=== PATIENT | female | born 1985 | race Caucasian/White ===

== ENCOUNTER 2020-10-17 08:58 | Outpatient (REF) | payer OTHER, SELFPAY ==
[2020-10-17 10:14] LABS: MANUAL DIFF FLAG NO
[2020-10-17 10:25] LABS: Basophils Percent Auto 0.4 % (0-2); Eosinophils Absolute Auto 0.1 X10*3/uL (0.0-0.4); Eosinophils Percent Auto 1.1 % (0-4); Hematocrit 35.3 % (37-47); Hemoglobin 11.8 g/dl (12.0-16.0); Imm Gran Abs Auto 0.01 X10*3/uL (0.00-0.03); Imm Gran Pct Auto 0.2 % (0.0-0.4); Lymphocytes Absolute Auto 1.6 X10*3/uL (1.2-4.9); Lymphocytes Percent Auto 30.1 % (20-40); Mean Corpuscular HGB Conc 33.4 g/dl (31.0-35.0); Mean Corpuscular Hemoglobin 31.6 pg (27.0-33.0); Mean Corpuscular Volume 94.4 fL (80-98); Monocytes Absolute Auto 0.5 X10*3/uL (0.1-1.2); Monocytes Percent Auto 10.3 % (2-11); Neutrophils Percent Auto 57.9 % (45-73); Platelet Count 173 X10*3/uL (160-400); Red Blood Count 3.74 X10*6/uL (4.20-5.50); White Blood Count 5.3 X10*3/uL (4.8-10.8)
[2020-10-17 10:42] LABS: Alanine Aminotransferase 7 U/L (0-31); Albumin Level 3.9 g/dL (3.5-5.0); Alkaline Phosphatase 36 U/L (39-117); Anion Gap 12 (12-20); Aspartate Amino Transferase 12 U/L (5-31); Bilirubin Total 0.6 mg/dL (0.0-1.0); Blood Urea Nitrogen 12 mg/dL (9-16); Calcium 8.4 mg/dL (8.4-10.2); Carbon Dioxide 23 mmol/L (22-29); Chloride 106 mmol/L (96-108); Cholesterol 162 mg/dL; Estimated Glomerular Filt Rate > 60; Glucose Fasting 92 mg/dL (60-99); HDL Cholesterol 66 mg/dL; LDL Cholesterol Calculated 81 mg/dl; Potassium 4.3 mmol/l (3.3-5.1); Sodium 137 mmol/L (135-145); Triglycerides 75 mg/dL
[2020-10-17 11:04] LABS: HCG Quantitative 1731 mIU/mL; TSH reflex Free T4 1.12 mIU/mL (0.32-4.0)
== END 2020-10-17 08:59 | disposition home or self-care (01) ==
LOC: HO.LAB 08:58
PROVIDERS: PCP Physician Assistant; Visit Provider Physician Assistant
DX: Z13.0 Encounter for screening for diseases of the blood and blood-forming organs and certain disorders involving the immune mechanism (principal); Z13.1 Encounter for screening for diabetes mellitus; Z13.29 Encounter for screening for other suspected endocrine disorder; N91.2 Amenorrhea, unspecified
CPT/HCPCS: 36415; 80053; 80061; 84443; 84702; 85025

== ENCOUNTER 2020-10-29 13:08 | Outpatient (REF) | payer OTHER, SELFPAY ==
[2020-10-29 14:22] LABS: Glucose Urine UA NEG (NEG); Leukocyte Esterase Urine NEG (NEG); Nitrite Urine NEG (NEG); PH 6.5 (5.0-8.0); Specific Gravity - Urine 1.025 (1.005-1.025); Urine Blood NEG (NEG); Urine Ketones 5 MG/DL (NEG); Urine Protein NEG (NEG-TRACE)
[2020-10-29 14:25] LABS: Appearance Urine HAZY; Color Urine YELLOW
== END 2020-10-29 13:09 | disposition home or self-care (01) ==
LOC: HO.LAB 13:08
PROVIDERS: PCP Physician Assistant; Visit Provider Obstetrics & Gynecology
DX: O26.891 Other specified pregnancy related conditions, first trimester (principal); R10.2 Pelvic and perineal pain
CPT/HCPCS: 81003; 84702; 87086

== ENCOUNTER 2023-07-29 14:20 | Outpatient (AMB) | payer OTHER, SELFPAY ==
--- NOTE | 2023-07-29 14:24 | A.OFFPC_ITS ---
Vital Signs 07/29/23 14:25 Height 5 ft 2 in Weight 177 lb BMI 32.4 BP 110/78 Blood Pressure Location Lt brachial Position Sitting Pulse 76 Pulse Source Pulse Oximeter Temp Source Skin Pulse Oximetry (%) 100 Oxygen Delivery Method Room Air Intake Visit Reasons: Annual PE Intake Note: Patient is here today for a physical. 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 Allergies No Known Allergies Allergy (Verified 07/29/23 14:40) Medication List - Last Reconciled 07/29/23 by FOSTER Sanders dextroamphetamine-amphetamine 10 mg ER 10 mg PO DAILY 30 days escitalopram oxalate 5 mg PO DAILY hydroxyzine HCl 25 mg PO BEDTIME PRN Tobacco use date assessed: 07/29/23 Dental Screening Dental Screen Date: 07/29/23 Did you have a dental visit in the last 12 months?: No Did you have a dental problem in the last 6 months where you did not have access to dental care?: No Was dental information given to patient?: Patient has dentist HPI Annual PE HPI Details Patient is a 38-year-old female who presents today for physical exam. Patient of SHIRLENE Lugo. medical history significant for ADHD-stable with Adder all, anxiety, obesity. Mother with history of breast cancer, will order mammogram. Tdap in 2019. Pap smear normal [address] Peralta. Eye and dental exams up-to-date. Patient denies shortness of breath or chest pain. [facility] Surgical History No pertinent past surgical history Family History Father No problems noted. Mother Breast cancer, Onset Age: 49 Maternal Aunt Breast cancer Son Alive and well Social History Housing: House Alcohol intake: current Alcohol intake frequency: holidays/special occasions only Patient Tobacco Use Status: Never used Tobacco e-Cigarette/Vaping Use: Never Used Second Hand Smoke Exposure: No Current occupational status: employed Cognitive needs: No Hearing needs: No Vision needs: No Questionnaire PHQ-9 Over the last 2 weeks, how often have you been bothered by any of the following problems? 1. Little interest or pleasure in doing things: not at all 2. Feeling down, depressed, or hopeless: not at all 3. Trouble falling or staying asleep, or sleeping too much: not at all 4. Feeling tired or having little energy: not at all 5. Poor appetite or overeating: not at all 6. Feeling bad about yourself - or that you are a failure or have let yourself or your family down: not at all 7. Trouble concentrating on things, such as reading the newspaper or watching television: not at all 8. Moving or speaking so slowly that other people could have noticed. Or the opposite - being so fidgety or restless that you have been moving around a lot more than usual: not at all 9. Thoughts that you would be better off or of hurting yourself in some wa y: not at all Total score: 0 Depression Screening Interpretation: Negative 95665 - PHQ-9 Billing: Yes Source: Developed by Drs. Tj Bustillos, Alka Ybarra, Chandan Lorenz and colleagues, with an educational ann-marie from [employer]. Thrive Questionnaire Date Thrive assessed: 07/29/23 I am a: Patient What is your living situation today?: I have a steady place to live Within the past 12 months, did the food you bought not last and you didn't have the money to get more?: Never true Within the past 12 months, did you worry whether your food would run out before you got money to buy more?: Never true Currently or been in a relationship where the following occur: no concerns reported AUDIT C Alcohol Use Questionnaire (AUDIT-C) 1. How often do you have a drink containing alcohol?: Monthly or less 2. How many drinks containing alcohol do you have on a typical day when you are drinking?: 1 or 2 3. How often do you have six or more drinks on one occasion?: Never Total Score: 1 Score Reviewed/Action Taken: No CHIARA-7 AMB Questionnaire CHIARA-7 Date CHIARA - 7 assessed: 07/29/23 (pt on RX for anxiety ) Feeling nervous, anxious, or on edge: 0 = Not at all Not being able to stop or control worryin = Not at all Worrying too much about different things: 0 = Not at all Trouble relaxin = Not at all Being so restless that it is hard to sit still: 0 = Not at all Becoming easily annoyed or irritable: 0 = Not at all Feeling afraid as if something awful might happen: 0 = Not at all Total CHIARA-7 score (0-4 normal; 5-9 mild; 10-14 moderate; 15-21 severe): 0 Source: Developed by Drs. Tj Bustillos, Alka Ybarra, Chandan Lorenz and colleagues, with an educational ann-marie from [employer]. CHIARA-7 Assessment Billing CHIARA-7 Assessment Tool: CHIARA-7 Assessment 10203 Review of Systems Const Denies body aches, Denies chills, Denies fever(s) and Denies headache(s) Eyes Denies change in vision ENT Denies dizziness, Denies otalgia, Denies headache(s), Denies nasal discharge, Denies sinus pain and Denies sore throat Card Denies chest pain, Denies edema, Denies lightheadedness and Denies dyspnea Resp Denies dyspnea and Denies wheezing GI Denies abdominal pain Denies dysuria Musc Denies myalgias Skin/Breast Denies rash Neuro Denies dizziness and Denies headache(s) Aller/Immun Denies wheezing Physical exam (Primary Care) Vital Signs: Last Vital Signs Pulse 76 07/29/23 14:25 BP 110/78 07/29/23 14:25 Pulse Ox 100 07/29/23 14:25 Oxygen Delivery Method Room Air 07/29/23 14:25 BMI result Body Mass Index 32.4 Tobacco/Smoking Status: Tobacco use Status Tobacco use date assessed 07/29/23 07/29/23 14:26 Patient Tobacco Use Status Never used Tobacco 07/29/23 14:26 e-Cigarette/Vaping Use Never Used 07/29/23 14:26 PHQ-9: PHQ-9 Score PHQ-9: Total score 0 07/29/23 14:42 Depression Screening Interpretation: Negative Thrive Assessment: Date of Thrive Assessment Date Thrive assessed 07/29/23 07/29/23 14:26 Currently or been in a relationship where the following occur: no concerns reported Const General: cooperative and no acute distress Orientation/consciousness: patient oriented x3 HENMT Head: Yes normocephalic and Yes atraumatic Ears: TM's normal bilaterally Face and sinus: Yes sinuses nontender Mouth: oropharynx normal and moist mucous membranes Throat: Yes posterior oropharynx normal Eyes General: appearance normal, both eyes and all related structures Pupils: Equal, round and reactive pupils present EOM: EOMs intact bilaterally Neck Neck: Yes normal visual inspection, Yes full ROM and Yes no lymphadenopathy Thyroid: Thyroid normal Resp Effort & Inspection: normal respiratory effort and able to speak in complete sentences Auscultation: clear to auscultation bilaterally, no crackles, no rales, no rhonchi and no wheezes Cardio Rate: regular rate Rhythm: regular rhythm Heart sounds: S1 normal heart sound present, S2 normal heart sound present and no murmurs GI Palpation (GI): Soft to palpation, not firm, nontender, no guarding, not rigid and no hepatosplenomegaly Auscultation: normal bowel sounds General: No CVA tenderness Back/Spine/Pelvis Back: No CVA tenderness Skin General skin exam: no rashes or lesions noted Neuro General: patient oriented x3 Cranial nerves: Yes Equal, round and reactive pupils present Gait exam (Neuro): Normal gait present Extrem General: Yes full ROM and No edema Assessment and Plan Assessment & Plan (1) CHIARA (generalized anxiety disorder): Code(s): F41.1 - Generalized anxiety disorder Plan: Continue escitalopram 5 mg daily Continue hydroxyzine 25 mg at bedtime p.r.n. (2) ADHD: Code(s): F90.9 - Attention-deficit hyperactivity disorder, unspecified type Qualifiers: Attention deficit-hyperactivity disorder type: predominantly inattentive Qualified Code(s): F90.0 - Attention-deficit hyperactivity disorder, predominantly inattentive type Plan: Patient is to continue Adderall 10 mg daily as prescribed (3) Family history of breast cancer: Code(s): Z80.3 - Family history of malignant neoplasm of breast Plan: Order for mammogram (4) Obese: Code(s): E66.9 - Obesity, unspecified Qualifiers: Obesity type: due to excess calories Obesity classification: adult class 1 (BMI 30 - 34.9) Serious obesity comorbidity presence: without serious comorbidity Body mass index: BMI 30.0-30.9 Qualified Code(s): E66.09 - Other obesity due to excess calories; Z68.30 - Body mass index [BMI] 30.0-30.9, adult Plan: Healthy food choices and exercise as tolerated (5) Annual physical exam: Code(s): Z00.00 - Encounter for general adult medical examination without abnormal findings (6) Screening for diabetes mellitus (DM): Code(s): Z13.1 - Encounter for screening for diabetes mellitus Orders: Orders MM tomosynthesis screening BI 07/29/23 Z80.3 - Family history of malignant neoplasm of breast Vitamin D 25-OH Total 07/29/23 Z00.00 - Encounter for general adult medical examination without abnormal findings Vitamin B12 and Folate 07/29/23 Z00. - Encounter for general adult medical examination without abnormal findings TSH reflex Free T4 07/29/23 Z00.00 - Encounter for general adult medical examination without abnormal findings Lipid Panel 07/29/23 Z00. - Encounter for general adult medical examination without abnormal findings Comprehensive [place]. Panel Fast 07/29/23 Z13. - Encounter for screening for diabetes mellitus Complete Blood Count Auto Diff 07/29/23 Z00.00 - Encounter for general adult medical examination without abnormal findings Medications: Refilled dextroamphetamine-amphetamine 10 mg ER 10 mg PO DAILY 30 caps 0RF 30 days F90.0 - Attention-deficit hyperactivity disorder, predominantly inattentive type Coding Level of Care Code Est Pt Prev Care 18-39y([id number]) Diagnoses CHIARA (generalized anxiety disorder) F41.1 Attention deficit hyperactivity disorder (ADHD), predominantly inattentive type F90.0 Attention deficit-hyperactivity disorder type: predominantly inattentive Family history of breast cancer Z80.3 Class 1 obesity due to excess calories without serious comorbidity with body mass index (BMI) of 30.0 to 30.9 in adult E66.09; Z68.30 Obesity type: due to excess calories Obesity classification: adult class 1 (BMI 30 - 34.9) Serious obesity comorbidity presence: without serious comorbidity Body mass index: BMI 30.0-30.9 Annual physical exam Z00.00 Screening for diabetes mellitus (DM) Z13.1 Additional Codes CHIARA-7 Assessment Billing - CHIARA-7 Assessment Tool: CHIARA-7 Assessment 48621 ([id number])
[2023-07-29 14:25] VITALS: BP 110/78; PULSE 76; O2SAT 100; BMI 32.4
== END 2023-07-29 14:55 | disposition home or self-care (01) ==
PROVIDERS: PCP Physician Assistant; Visit Provider Nurse Practitioner Family
DX: Z00.00 Encounter for general adult medical examination without abnormal findings (principal); F90.0 Attention-deficit hyperactivity disorder, predominantly inattentive type; E66.09 Other obesity due to excess calories; Z68.30 Body mass index [BMI] 30.0-30.9, adult
CPT/HCPCS: 99395

== ENCOUNTER 2023-08-22 07:23 | Outpatient (REF) | payer OTHER, SELFPAY ==
--- NOTE | ~2023-08-22 | MM_ITS ---
EXAMINATION: MM SCREENING DIGITAL BREAST TOMOSYNTHESIS, BILATERAL CLINICAL INFORMATION: Screening. Asymptomatic. COMPARISON: Mammography: This is a baseline study. TECHNIQUE: Digital breast tomosynthesis is performed in both the craniocaudal and mediolateral oblique views along with computer-aided detection (CAD). Synthesized 2D images are generated from the tomosynthesis. FINDINGS: The breasts are heterogeneously dense, which may obscure small masses (ACR BI-RADS breast composition Category c). There is focal asymmetry of the upper outer quadrant of the left breast which may be normal for this patient. The prior mammograms, further mammographic imaging is advised. Sonography may be performed at the discretion of the diagnostic radiologist. There are no significant masses or abnormal calcifications. MM/MM tomosynthesis screening BI IMPRESSION: Focal asymmetry of the upper outer quadrant of the left breast on a baseline mammogram warrants additional mammographic imaging. ASSESSMENT: BI-RADS BI-RADS 0 - Incomplete: Needs additional Imaging. RECOMMENDATION: 1. Additional views of the left breast 2. Targeted ultrasound if warranted after review of the additional views. 3. Radiology department staff will contact the patient for additional imaging. Additional Imaging required This examination should not preclude the clinical evaluation of a suspicious palpable abnormality. This patient's information was entered into a reminder system with a target due date for their next mammogram.
== END 2023-08-22 07:24 | disposition home or self-care (01) ==
LOC: HO.MAMMO 07:23
PROVIDERS: PCP Physician Assistant; Visit Provider Nurse Practitioner Family
DX: Z12.31 Encounter for screening mammogram for malignant neoplasm of breast (principal)
CPT/HCPCS: 77063; 77067

== ENCOUNTER → 2023-08-22 07:30 | Outpatient (BNV) | payer OTHER, SELFPAY | PROVIDERS: PCP Physician Assistant; Visit Provider Radiology Diagnostic Radiology | DX: Z12.31 Encounter for screening mammogram for malignant neoplasm of breast (principal) | CPT/HCPCS: 77063; 77067 ==

== ENCOUNTER 2023-09-14 13:24 | Outpatient (REF) | payer OTHER, SELFPAY ==
--- NOTE | ~2023-09-14 | US_ITS ---
EXAMINATION: MM DIAGNOSTIC DIGITAL BREAST TOMOSYNTHESIS, LEFT US BREAST LIMITED, LEFT MAMMOGRAPHY: CLINICAL INFORMATION: Evaluate focal asymmetric tissue left breast upper outer quadrant seen on baseline screening exam. COMPARISON: Mammography: Baseline screening exam 08/22/2023. TECHNIQUE: Digital breast tomosynthesis is performed in full field 3-D left mediolateral view, as well as 3-D spot compression left MLO and CC views. FINDINGS: There are scattered areas of fibroglandular density (ACR BI-RADS breast composition Category b). Diagnostic views demonstrate no evidence of mass or focal architectural distortion within the upper outer quadrant of the left breast. No suspicious microcalcifications are present. There are no findings suspicious for malignancy. ULTRASOUND: CLINICAL INFORMATION: As above. COMPARISON: No relevant prior. TECHNIQUE: Targeted sonographic evaluation was performed using a high frequency linear transducer. Attention to the upper outer quadrant was given. Selected archived documentation. FINDINGS: LEFT BREAST: There is a mixture of fatty and fibroglandular tissue. No suspicious mass is seen. There is no pathologic acoustic shadowing. There is no cystic abnormality. US/US breast LT limited mamm only IMPRESSION: There are no findings suspicious for malignancy. Asymmetric tissue in the upper outer quadrant appears normal for this patient. Recommend returning to routine screening. OVERALL ASSESSMENT: Mammography: BI-RADS 1 - Negative Ultrasound: BI-RADS 1 - Negative RECOMMENDATION: 1 year F/U Results were provided to the patient at time of visit by the technologist. This patient's information was entered into a reminder system with a target due date for their next mammogram.
== END 2023-09-14 13:25 | disposition home or self-care (01) ==
LOC: HO.MAMMO 13:24
PROVIDERS: PCP Physician Assistant; Visit Provider Nurse Practitioner Family
DX: N64.89 Other specified disorders of breast (principal)
CPT/HCPCS: 76642; 77061; 77065

== ENCOUNTER → 2023-09-14 13:30 | Outpatient (BNV) | payer OTHER, SELFPAY | PROVIDERS: PCP Physician Assistant; Visit Provider Radiology Diagnostic Radiology | DX: R92.312 Mammographic fatty tissue density, left breast (principal); R92.322 Mammographic fibroglandular density, left breast | CPT/HCPCS: 76642; 77061; 77065 ==

== ENCOUNTER 2024-01-02 15:36 | Outpatient (AMB) | payer OTHER, SELFPAY ==
--- NOTE | 2024-01-02 15:38 | MHC.PC.OV ---
Vital Signs 01/02/24 15:39 Height 5 ft 2 in Weight 176 lb 8 oz BMI 32.3 BP 104/76 Blood Pressure Location Lt brachial Position Sitting Pulse 85 Pulse Source Pulse Oximeter Pulse Oximetry (%) 99 Oxygen Delivery Method Room Air Intake Visit Reasons: ADHD Public Service Director Required: No Accompanied by: Self / Same As Patient Allergies No Known Allergies Allergy (Verified 01/02/24 15:52) Medication List - Last Reconciled 01/02/24 by Jerry Lugo PA-C dextroamphetamine-amphetamine 10 mg ER 10 mg PO DAILY 30 days escitalopram oxalate 5 mg PO DAILY hydroxyzine HCl 25 mg PO BEDTIME PRN Tobacco use date assessed: 01/02/24 Dental Screening Dental Screen Date: 01/02/24 Did you have a dental visit in the last 12 months?: Yes Did you have a dental problem in the last 6 months where you did not have access to dental care?: No Was dental information given to patient?: Patient has dentist HPI ADHD HPI Details Patient is a 38-year-old female here today for follow-up visit ?Patient has a past medical history significant for ADHD , generalized anxiety disorder. .. ADHD:? Patient continues on low-dose Adderall with good effect on her her attention of focus on job tasks.? Continues to work part-time and now at a new job which she is doing well with. .. Generalized anxiety disorder:? Recently restarted SSRI therapy and doing well with her anxiety.' :Obesity: Latasha reports she has been having a very hard time losing weight. She reports she is fairly active and has fairly good eating habits. She does admit she can be a little bit more physically active. She is interested in trying GLP 1 to try to lose weight. [facility] Surgical History No pertinent past surgical history Family History Father No problems noted. Mother Breast cancer, Onset Age: 49 Maternal Aunt Breast cancer Son Alive and well Social History Housing: House Alcohol intake: current Alcohol intake frequency: holidays/special occasions only Patient Tobacco Use Status: Never used Tobacco e-Cigarette/Vaping Use: Never Used Second Hand Smoke Exposure: No Current occupational status: employed Cognitive needs: No Hearing needs: No Vision needs: No Questionnaire PHQ-9 Over the last 2 weeks, how often have you been bothered by any of the following problems? 1. Little interest or pleasure in doing things: not at all 2. Feeling down, depressed, or hopeless: not at all 3. Trouble falling or staying asleep, or sleeping too much: not at all 4. Feeling tired or having little energy: not at all 5. Poor appetite or overeating: not at all 6. Feeling bad about yourself - or that you are a failure or have let yourself or your family down: not at all 7. Trouble concentrating on things, such as reading the newspaper or watching television: not at all 8. Moving or speaking so slowly that other people could have noticed. Or the opposite - being so fidgety or restless that you have been moving around a lot more than usual: not at all 9. Thoughts that you would be better off or of hurting yourself in some way: not at all Total score: 0 Depression Screening Interpretation: Negative Depression Screening Done: Yes 95608 - PHQ-9 Billing: Yes Source: Developed by Drs. Tj Bustillos, Alka Ybarra, Chandan Lorenz and colleagues, with an educational ann-marie from [employer]. Thrive Questionnaire Date Thrive assessed: 01/02/24 I am a: Patient What is your living situation today?: I have a steady place to live Within the past 12 months, did the food you bought not last and you didn't have the money to get more?: Never true Within the past 12 months, did you worry whether your food would run out before you got money to buy more?: Never true Do you have trouble paying for medicines?: No Do you have trouble getting transportation to medical appointments?: No Do you have trouble paying your heating and electricity bill?: No Do you have trouble taking care of your child, family member or friend?: No Do you have trouble with day-to-day activities such as bathing, preparing meals, shopping, managing finances, etc.?: No Are you currently unemployed and looking for a job?: No Are you interested in more education?: No Please select the resources that you would like help with: None Currently or been in a relationship where the following occur: no concerns reported THRIVE Score: 0 AUDIT C Alcohol Use Questionnaire (AUDIT-C) 1. How often do you have a drink containing alcohol?: Monthly or less 2. How many drinks containing alcohol do you have on a typical day when you are drinking?: 1 or 2 3. How often do you have six or more drinks on one occasion?: Never Total Score: 1 Score Reviewed/Action Taken: No CHIARA-7 AMB Questionnaire CHIARA-7 Date CHIARA - 7 assessed: 01/02/24 (pt on RX for anxiety ) Feeling nervous, anxious, or on edge: 0 = Not at all Not being able to stop or control worryin = Not at all Worrying too much about different things: 0 = Not at all Trouble relaxin = Not at all Being so restless that it is hard to sit still: 0 = Not at all Becoming easily annoyed or irritable: 0 = Not at all Feeling afraid as if something awful might happen: 0 = Not at all Total CHIARA-7 score (0-4 normal; 5-9 mild; 10-14 moderate; 15-21 severe): 0 Source: Developed by Drs. Tj Bustillos, Alka Ybarra, Chandan Lorenz and colleagues, with an educational ann-marie from [employer]. CHIARA-7 Assessment Billing CHIARA-7 Assessment Tool: CHIARA-7 Assessment 20285 Review of Systems Const Denies headache(s) Eyes Denies loss of vision ENT Denies vertigo, Denies dizziness, Denies headache(s) and Denies sore throat Card Denies chest pain, Denies leg edema and Denies lightheadedness Resp Denies cough, Denies hemoptysis and Denies wheezing GI Denies abdominal pain, Denies melena, Denies constipation, Denies diarrhea and Denies vomiting Denies urinary frequency, Denies dysuria and Denies urinary urgency Musc Denies arthralgias, Denies joint swelling, Denies numbness and Denies tingling Neuro Denies Abnormal speech present, Denies behavioral changes, Denies vertigo, Denies dizziness, Denies headache(s), Denies loss of vision, Denies memory loss, Denies numbness and Denies tingling Psych Denies anxiety, Denies behavioral changes, Denies depression, Denies memory loss and Denies panic attacks Juan Manuel/Lymph Denies easy bleeding and Denies easy bruising Aller/Immun Denies wheezing Physical exam (Primary Care) Vital Signs: Last Vital Signs Pulse 85 01/02/24 15:39 BP 104/76 01/02/24 15:39 Pulse Ox 99 01/02/24 15:39 Oxygen Delivery Method Room Air 01/02/24 15:39 BMI result Body Mass Index 32.3 BMI Assessment/Plan discussion: High Tobacco/Smoking Status: Tobacco use Status Tobacco use date assessed 01/02/24 01/02/24 15:40 Patient Tobacco Use Status Never used Tobacco 01/02/24 15:38 e-Cigarette/Vaping Use Never Used 01/02/24 15:38 PHQ-9: PHQ-9 Score PHQ-9: Total score 0 01/02/24 15:54 Depression Screening Interpretation: Negative Thrive Assessment: Date of Thrive Assessment Date Thrive assessed 01/02/24 01/02/24 15:49 Currently or been in a relationship where the following occur: no concerns reported Const Other: Obese General: healthy appearing, no acute distress, alert and awake Nutritional Appearance: well nourished Orientation/consciousness: oriented to person, oriented to place and oriented to time HENMT Ears: TM's normal bilaterally General nose exam: Normal nasal mucous membranes and turbinates present Eyes Conjunctivae: conjunctivae normal Sclerae: sclerae normal Pupils: Equal, round and reactive pupils present Neck Neck: Yes no lymphadenopathy and Yes no JVD Thyroid: Thyroid normal Carotids: no bruits Resp Effort & Inspection: normal respiratory effort and not tachypneic Auscultation: no crackles, no rales, no rhonchi and no wheezes Cardio Rate: regular rate Rhythm: regular rhythm Heart sounds: no murmurs and normal S1 and S2 GI Palpation (GI): Soft to palpation, nontender, no hepatomegaly and no splenomegaly Auscultation: normal bowel sounds Skin General skin exam: no rashes or lesions noted and dry skin Neuro General: oriented to person, oriented to place and oriented to time Cranial nerves: Yes Equal, round and reactive pupils present Speech: No Abnormal speech present Gait exam (Neuro): Normal gait present Motor exam (neuro): no tremor noted Extrem Right upper extremity: full ROM Left upper extremity: full ROM Right lower extremity: full ROM; no edema Left lower extremity: full ROM; no edema Psych Mental Status: mental status grossly normal Speech and movement: Normal speech and movement present Affect: normal affect Attitude: cooperative Thought process: Normal thought process present Assessment and Plan Assessment & Plan (1) CHIARA (generalized anxiety disorder): Code(s): F41.1 - Generalized anxiety disorder Plan: Continue escitalopram 5 mg daily, She reports her anxiety is fairly well controlled with current dose of SSRI therapy. (2) ADHD: Code(s): F90.9 - Attention-deficit hyperactivity disorder, unspecified type Qualifiers: Attention deficit-hyperactivity disorder type: predominantly inattentive Qualified Code(s): F90.0 - Attention-deficit hyperactivity disorder, predominantly inattentive type Plan: Patient is to continue Adderall 10 mg daily as prescribed. She denies any side effects from the stimulant medication. (3) Screening for diabetes mellitus (DM): Code(s): Z13.1 - Encounter for screening for diabetes mellitus (4) Obese: Code(s): E66.9 - Obesity, unspecified Qualifiers: Body mass index: BMI 32.0-32.9 Obesity classification: adult class 1 (BMI 30 - 34.9) Obesity type: due to excess calories Serious obesity comorbidity presence: without serious comorbidity Qualified Code(s): E66.09 - Other obesity due to excess calories; Z68.32 - Body mass index [BMI] 32.0-32.9, adult Plan: She does understand her BMI is over 30 and will try to work on better eating habits and being more physically active to lose weight. She is wanting to start GLP 1 for weight loss. Will send in started dose and see if insurance does cover. Orders: Orders IRON PROFILE 01/02/24 D50.9 - Iron deficiency anemia, unspecified, Z13.0 - Encounter for screening for diseases of the blood and blood-forming organs and certain disorders involving the immune mechanism Comprehensive [place]. Panel Fast 01/02/24 Z13.1 - Encounter for screening for diabetes mellitus Complete Blood Count no Diff 01/02/24 Z13.0 - Encounter for screening for diseases of the blood and blood-forming organs and certain disorders involving the immune mechanism TSH reflex Free T4 Today N91.2 - Amenorrhea, unspecified Medications: New semaglutide (weight loss) (Gregorio) administer weeks 1 through 4 of therapy 0.25 mg (0.5 mL) subcut QWEEK 2 mL 0RF 4 weeks E66.09 - Other obesity due to excess calories, Z68.32 - Body mass index [BMI] 32.0-32.9, adult Refilled dextroamphetamine-amphetamine 10 mg ER 10 mg PO DAILY 30 caps 0RF 30 days F90.0 - Attention-deficit hyperactivity disorder, predominantly inattentive type escitalopram oxalate 5 mg PO DAILY 90 tabs 1RF F41.1 - Generalized anxiety disorder Discontinued hydroxyzine HCl Discontinued Reason: Doctor's Order 25 mg PO BEDTIME PRN 10 tabs 0RF anxiety F41.1 - Generalized anxiety disorder Coding Level of Care Code Est Pt Level 4 (19310) Diagnoses CHIARA (generalized anxiety disorder) F41.1 Attention deficit hyperactivity disorder (ADHD), predominantly inattentive type F90.0 Attention deficit-hyperactivity disorder type: predominantly inattentive Screening for diabetes mellitus (DM) Z13.1 Class 1 obesity due to excess calories without serious comorbidity with body mass index (BMI) of 32.0 to 32.9 in adult E66.09; Z68.32 Body mass index: BMI 32.0-32.9 Obesity classification: adult class 1 (BMI 30 - 34.9) Obesity type: due to excess calories Serious obesity comorbidity presence: without serious comorbidity Additional Codes CHIARA-7 Assessment Billing - CHIARA-7 Assessment Tool: CHIARA-7 Assessment 60756 ([id number])
[2024-01-02 15:39] VITALS: BP 104/76; PULSE 85; O2SAT 99; BMI 32.3
== END 2024-01-02 16:16 | disposition home or self-care (01) ==
PROVIDERS: PCP Physician Assistant; Visit Provider Physician Assistant
DX: F41.1 Generalized anxiety disorder (principal); E66.09 Other obesity due to excess calories; Z68.32 Body mass index [BMI] 32.0-32.9, adult; F90.0 Attention-deficit hyperactivity disorder, predominantly inattentive type; Z13.1 Encounter for screening for diabetes mellitus
CPT/HCPCS: 99214

== ENCOUNTER 2024-04-02 08:42 | Outpatient (AMB) | payer OTHER, SELFPAY ==
--- NOTE | 2024-04-02 08:55 | MHC.PC.OV ---
Vital Signs 04/02/24 08:56 Height 5 ft 2 in Weight 154 lb 2 oz BMI 28.2 BP 132/68 Blood Pressure Location Rt brachial Position Sitting Pulse 78 Pulse Source Pulse Oximeter Pulse Oximetry (%) 98 Oxygen Delivery Method Room Air Intake Visit Reasons: f/u ADHD Intake Note: Patient is here to follow up on ADHD. Front Line Supervisor Required: No Optical Brightener Maker Helper: Not Required per policy Accompanied by: Self / Same As Patient Allergies No Known Allergies Allergy (Verified 04/02/24 09:19) Medication List - Last Reconciled 04/02/24 by Jerry Lugo PA-C dextroamphetamine-amphetamine 10 mg ER 10 mg PO DAILY 30 days escitalopram oxalate 5 mg PO DAILY semaglutide (weight loss) (Wegovy) 1 mg (0.5 mL) subcut QWEEK 4 weeks Tobacco use date assessed: 04/02/24 Dental Screening Dental Screen Date: 01/02/24 HPI f/u ADHD HPI Details Patient is a 38-year-old female here today for follow-up visit ?Patient has a past medical history significant for ADHD , generalized anxiety disorder. .. ADHD:? Patient continues on low-dose Adderall with good effect on her her attention of focus on job tasks.? Continues to work part-time and now at a new job which she is doing well with. .. Generalized anxiety disorder:? Continues on SSRI therapy and doing well. Her mental anxiety has been better even since losing weight :Obesity: Has started Wegovy and has lost significant amount of weight. Today's BMI at 28.2. She reports she feels great though has minor side effects from the GLP 1 that are tolerable. [facility] Surgical History No pertinent past surgical history Family History Father No problems noted. Mother Breast cancer, Onset Age: 49 Maternal Aunt Breast cancer Son Alive and well Social History Housing: House Alcohol intake: current Alcohol intake frequency: holidays/special occasions only Patient Tobacco Use Status: Never used Tobacco e-Cigarette/Vaping Use: Never Used Second Hand Smoke Exposure: No service: No Current occupational status: employed Cognitive needs: No Hearing needs: No Vision needs: Yes (Glasses) Questionnaire Thrive Questionnaire Date Thrive assessed: 01/02/24 CHIARA-7 AMB Questionnaire CHIARA-7 Date CHIARA - 7 assessed: 01/02/24 (pt on RX for anxiety ) Source: Developed by Drs. Tj Bustillos, Alka Ybarra, Chandan Lorenz and colleagues, with an educational ann-marie from [employer]. Review of Systems Const Denies headache(s) Eyes Denies loss of vision ENT Denies vertigo, Denies dizziness, Denies headache(s) and Denies sore throat Card Denies chest pain, Denies leg edema and Denies lightheadedness Resp Denies cough, Denies hemoptysis and Denies wheezing GI Denies abdominal pain, Denies melena, Denies constipation, Denies diarrhea and Denies vomiting Denies urinary frequency, Denies dysuria and Denies urinary urgency Musc Denies arthralgias, Denies joint swelling, Denies numbness and Denies tingling Neuro Denies Abnormal speech present, Denies behavioral changes, Denies vertigo, Denies dizziness, Denies headache(s), Denies loss of vision, Denies memory loss, Denies numbness and Denies tingling Psych Denies anxiety, Denies behavioral changes, Denies depression, Denies memory loss and Denies panic attacks Juan Manuel/Lymph Denies easy bleeding and Denies easy bruising Aller/Immun Denies wheezing Physical exam (Primary Care) Vital Signs: Last Vital Signs Pulse 78 04/02/24 08:56 BP 132/68 04/02/24 08:56 Pulse Ox 98 04/02/24 08:56 Oxygen Delivery Method Room Air 04/02/24 08:56 BMI result Body Mass Index 28.2 Tobacco/Smoking Status: Tobacco use Status Tobacco use date assessed 04/02/24 04/02/24 08:59 Patient Tobacco Use Status Never used Tobacco 04/02/24 08:59 e-Cigarette/Vaping Use Never Used 04/02/24 08:59 Thrive Assessment: Date of Thrive Assessment Date Thrive assessed 01/02/24 04/02/24 08:59 Const General: healthy appearing, no acute distress, alert and awake Nutritional Appearance: well nourished Orientation/consciousness: oriented to person, oriented to place and oriented to time HENMT Ears: TM's normal bilaterally General nose exam: Normal nasal mucous membranes and turbinates present Eyes Conjunctivae: conjunctivae normal Sclerae: sclerae normal Pupils: Equal, round and reactive pupils present Neck Neck: Yes no lymphadenopathy and Yes no JVD Thyroid: Thyroid normal Carotids: no bruits Resp Effort & Inspection: normal respiratory effort and not tachypneic Auscultation: no crackles, no rales, no rhonchi and no wheezes Cardio Rate: regular rate Rhythm: regular rhythm Heart sounds: no murmurs and normal S1 and S2 GI Palpation (GI): Soft to palpation, nontender, no hepatomegaly and no splenomegaly Auscultation: normal bowel sounds Skin General skin exam: no rashes or lesions noted and dry skin Neuro General: oriented to person, oriented to place and oriented to time Cranial nerves: Yes Equal, round and reactive pupils present Speech: No Abnormal speech present Gait exam (Neuro): Normal gait present Motor exam (neuro): no tremor noted Extrem Right upper extremity: full ROM Left upper extremity: full ROM Right lower extremity: full ROM; no edema Left lower extremity: full ROM; no edema Psych Mental Status: mental status grossly normal Speech and movement: Normal speech and movement present Affect: normal affect Attitude: cooperative Thought process: Normal thought process present Assessment and Plan Assessment & Plan (1) ADHD: Code(s): F90.9 - Attention-deficit hyperactivity disorder, unspecified type Qualifiers: Attention deficit-hyperactivity disorder type: predominantly inattentive Qualified Code(s): F90.0 - Attention-deficit hyperactivity disorder, predominantly inattentive type Plan: Patient is to continue Adderall 10 mg daily as prescribed. She denies any side effects from the stimulant medication. (2) CHIARA (generalized anxiety disorder): Code(s): F41.1 - Generalized anxiety disorder Plan: Continue escitalopram 5 mg daily, She reports her anxiety is fairly well controlled with current dose of SSRI therapy. (3) Obese: Code(s): E66.9 - Obesity, unspecified Qualifiers: Obesity type: due to excess calories Obesity classification: adult class 1 (BMI 30 - 34.9) Serious obesity comorbidity presence: without serious comorbidity Body mass index: BMI 32.0-32.9 Qualified Code(s): E66.09 - Other obesity due to excess calories; Z68.32 - Body mass index [BMI] 32.0-32.9, adult Plan: Now on Wegovy 1 mg daily. Has lost 20 lb since last office visit. She feels great though has minor side effects from the GLP 1 that are tolerable. She reports her goal weight is to be 135 lbs. Patient Instructions: Goals: Continue losing weight Barriers: Adherence to physical activity and healthy eating habits. Coding Level of Care Code Est Pt Level 4 (43508) Diagnoses Attention deficit hyperactivity disorder (ADHD), predominantly inattentive type F90.0 Attention deficit-hyperactivity disorder type: predominantly inattentive CHIARA (generalized anxiety disorder) F41.1 Class 1 obesity due to excess calories without serious comorbidity with body mass index (BMI) of 32.0 to 32.9 in adult E66.09; Z68.32 Obesity type: due to excess calories Obesity classification: adult class 1 (BMI 30 - 34.9) Serious obesity comorbidity presence: without serious comorbidity Body mass index: BMI 32.0-32.9
[2024-04-02 08:56] VITALS: BP 132/68; PULSE 78; O2SAT 98; BMI 28.2
== END 2024-04-02 09:37 | disposition home or self-care (01) ==
PROVIDERS: PCP Physician Assistant; Visit Provider Physician Assistant
DX: F90.0 Attention-deficit hyperactivity disorder, predominantly inattentive type (principal); F41.1 Generalized anxiety disorder; E66.09 Other obesity due to excess calories; Z68.32 Body mass index [BMI] 32.0-32.9, adult
CPT/HCPCS: 99214

== ENCOUNTER 2024-08-01 08:00 | Outpatient (REF) | payer OTHER, SELFPAY ==
[2024-08-01 09:35] LABS: Hematocrit 34.8 % (37.0-47.0); Hemoglobin 11.5 g/dl (12.0-16.0); Mean Corpuscular Hemoglobin 29.1 pg (27.0-33.0); Mean Corpuscular Volume 88.1 fL (80.0-98.0); Mean Platelet Volume 9.8 fL (9.4-12.3); Platelet Count 199 X10*3/uL (160-400); Red Blood Count 3.95 X10*6/uL (4.20-5.50); Red Cell Distribution Width 13.2 % (11.0-16.0); White Blood Count 4.8 X10*3/uL (4.8-10.8)
[2024-08-01 10:19] LABS: Alanine Aminotransferase 6 U/L (0-31); Alkaline Phosphatase 43 U/L (39-117); Anion Gap 10 (12-20); Aspartate Amino Transferase 12 U/L (5-31); Bilirubin Total 0.5 mg/dL (0.0-1.0); Blood Urea Nitrogen 11 mg/dL (9-16); Calcium 8.8 mg/dL (8.4-10.2); Carbon Dioxide 24 mmol/L (22-29); Chloride 107 mmol/L (96-108); Estimated Glomerular Filt Rate > 60; Glucose Fasting 89 mg/dL (60-99); Iron 35 mcg/dL (30-160); Percent Iron Saturation 10 % (15-50); Potassium 3.9 mmol/L (3.3-5.1); Sodium 137 mmol/L (135-145); Total Iron Binding Capacity 342 mcg/dL (228-428); Total Protein 7.5 g/dL (6.5-8.0); Unsaturated Iron Binding 307 ug/dL
[2024-08-01 10:42] LABS: TSH reflex Free T4 1.05 uIU/mL (0.32-4.0)
== END 2024-08-01 08:01 | disposition home or self-care (01) ==
LOC: HO.LAB 08:00
PROVIDERS: PCP Physician Assistant; Visit Provider Physician Assistant
DX: Z00.00 Encounter for general adult medical examination without abnormal findings (principal); F90.0 Attention-deficit hyperactivity disorder, predominantly inattentive type; F41.1 Generalized anxiety disorder; E66.09 Other obesity due to excess calories; Z68.32 Body mass index [BMI] 32.0-32.9, adult; Z79.899 Other long term (current) drug therapy; D50.9 Iron deficiency anemia, unspecified; N91.2 Amenorrhea, unspecified; Z13.0 Encounter for screening for diseases of the blood and blood-forming organs and certain disorders involving the immune mechanism; Z13.1 Encounter for screening for diabetes mellitus
CPT/HCPCS: 36415; 80053; 83540; 84443; 85027; 96127

== ENCOUNTER 2024-08-01 08:00 | Outpatient (AMB) | payer OTHER, SELFPAY ==
[2024-08-01 08:10] VITALS: BP 112/76; PULSE 78; O2SAT 98; BMI 25.2
--- NOTE | 2024-08-01 08:10 | MHC.PC.OV ---
Vital Signs 08/01/24 08:10 Height 5 ft 2 in Weight 138 lb BMI 25.2 BP 112/76 Blood Pressure Location Lt brachial Position Sitting Pulse 78 Pulse Source Pulse Oximeter Pulse Oximetry (%) 98 Oxygen Delivery Method Room Air Intake Visit Reasons: PHYSICAL Intake Note: Patient here for a Physical Exam Bi Architect Required: No Accompanied by: Self / Same As Patient Allergies No Known Allergies Allergy (Verified 08/01/24 08:14) Medication List - Last Reconciled 08/01/24 by Jerry Lugo PA-C dextroamphetamine-amphetamine 10 mg ER 10 mg PO DAILY 30 days escitalopram oxalate 5 mg PO DAILY semaglutide (weight loss) (Wegovy) 1 mg (0.5 mL) subcut QWEEK 4 weeks Tobacco use date assessed: 04/02/24 Dental Screening Dental Screen Date: 08/01/24 Did you have a dental visit in the last 12 months?: Yes Did you have a dental problem in the last 6 months where you did not have access to dental care?: No Was dental information given to patient?: Patient has dentist HPI PHYSICAL HPI Details Patient is a 39-year-old female here today for routine annual physical ?Patient has a past medical history significant for ADHD , generalized anxiety disorder. .. ADHD:? Patient continues on low-dose Adderall with good effect on her her attention of focus on job tasks.? Continues to work part-time and now at a new job which she is doing well with. .. Generalized anxiety disorder:? Continues on SSRI therapy and doing well. Her mental anxiety has been better even since losing weight :Obesity: Has started Wegovy and has lost significant amount of weight. Today's BMI at 25. She reports she feels great though has minor side effects from the GLP 1 that are tolerable. 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 [facility] Surgical History No pertinent past surgical history Family History Father No problems noted. 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 1. Little interest or pleasure in doing things: not at all 2. Feeling down, depressed, or hopeless: not at all 3. Trouble falling or staying asleep, or sleeping too much: not at all 4. Feeling tired or having little energy: not at all 5. Poor appetite or overeating: not at all 6. Feeling bad about yourself - or that you are a failure or have let yourself or your family down: not at all 7. Trouble concentrating on things, such as reading the newspaper or watching television: not at all 8. Moving or speaking so slowly that other people could have noticed. Or the opposite - being so fidgety or restless that you have been moving around a lot more than usual: not at all 9. Thoughts that you would be better off or of hurting yourself in some way: not at all Total score: 0 Depression Screening Interpretation: Negative Depression Screening Done: Yes 71843 - PHQ-9 Billing: Yes Source: Developed by Drs. Tj Bustillos, Alka Ybarra, Chandan Lorenz and colleagues, with an educational ann-marie from [employer]. Thrive Questionnaire Date Thrive assessed: 08/01/24 I am a: Patient What is your living situation today?: I have a steady place to live Within the past 12 months, did the food you bought not last and you didn't have the money to get more?: Never true Within the past 12 months, did you worry whether your food would run out before you got money to buy more?: Never true Do you have trouble paying for medicines?: No Do you have trouble getting transportation to medical appointments?: No Do you have trouble paying your heating and electricity bill?: No Do you have trouble taking care of your child, family member or friend?: No Do you have trouble with day-to-day activities such as bathing, preparing meals, shopping, managing finances, etc.?: No Are you currently unemployed and looking for a job?: No Are you interested in more education?: No Please select the resources that you would like help with: None Currently or been in a relationship where the following occur: No concerns reported THRIVE Score: 0 AUDIT C Alcohol Use Questionnaire (AUDIT-C) 1. How often do you have a drink containing alcohol?: Monthly or less 2. How many drinks containing alcohol do you have on a typical day when you are drinking?: 3 or 4 3. How often do you have six or more drinks on one occasion?: Never Total Score: 2 CHIARA-7 AMB Questionnaire CHIARA-7 Date CHIARA - 7 assessed: 08/01/24 (pt on RX for anxiety ) Feeling nervous, anxious, or on edge: 0 = Not at all Not being able to stop or control worryin = Not at all Worrying too much about different things: 0 = Not at all Trouble relaxin = Not at all Being so restless that it is hard to sit still: 0 = Not at all Becoming easily annoyed or irritable: 0 = Not at all Feeling afraid as if something awful might happen: 0 = Not at all Total CHIARA-7 score (0-4 normal; 5-9 mild; 10-14 moderate; 15-21 severe): 0 Source: Developed by Drs. Tj Bustillos, Alka Ybarra, Chandan Lornez and colleagues, with an educational ann-marie from [employer]. CHIARA-7 Assessment Billing CHIARA-7 Assessment Tool: CHIARA-7 Assessment 02357 Review of Systems Const Denies body aches, Denies chills, Denies excessive sweating, Denies fatigue, Denies fever(s) and Denies headache(s) Eyes Denies blurry vision ENT Denies dysphagia, Denies vertigo, Denies dizziness, Denies headache(s), Denies hearing loss and Denies tinnitus Card Denies chest pain, Denies chest pain with activity, Denies syncope, Denies irregular heart rhythm and Denies dyspnea Resp Denies chest congestion, Denies cough, Denies hemoptysis, Denies dyspnea and Denies wheezing GI Denies abdominal pain, Denies melena, Denies hematochezia, Denies coffee ground emesis, Denies dysphagia, Denies diarrhea, Denies nausea and Denies vomiting Denies urinary frequency, Denies dysuria, Denies urinary hesitancy and Denies urinary urgency Musc Denies arthralgias, Denies limited range of motion, Denies muscle cramps and Denies muscle weakness Skin/Breast Denies rash and Denies skin ulcer Neuro Denies Abnormal speech present, Denies confusion, Denies vertigo, Denies dizziness, Denies syncope, Denies headache(s), Denies memory loss and Denies seizure-like activity Psych Denies anxiety, Denies confusion, Denies depression, Denies memory loss, Denies panic attacks and Denies paranoia Endo Denies excessive sweating, Denies fatigue, Denies flushing, Denies polydipsia and Denies polyuria Aller/Immun Denies wheezing Physical exam (Primary Care) Vital Signs: Last Vital Signs Pulse 78 08/01/24 08:10 BP 112/76 08/01/24 08:10 Pulse Ox 98 08/01/24 08:10 Oxygen Delivery Method Room Air 08/01/24 08:10 BMI result Body Mass Index 25.2 Tobacco/Smoking Status: Tobacco use Status Tobacco use date assessed 04/02/24 04/02/24 08:59 Patient Tobacco Use Status Never used Tobacco 04/02/24 08:59 e-Cigarette/Vaping Use Never Used 04/02/24 08:59 Depression Screening Interpretation: Negative Thrive Assessment: Date of Thrive Assessment Date Thrive assessed 01/02/24 04/02/24 08:59 Currently or been in a relationship where the following occur: No concerns reported Const General: cooperative, comfortable, no acute distress, alert and awake; No confusion Orientation/consciousness: oriented to person, oriented to place, patient oriented x3 and No confusion HENMT Head: Yes normocephalic Ears: external ears normal and TM's normal bilaterally Face and sinus: No sinus tenderness Mouth: Normal oral and palatal mucosa present and tongue normal Teeth and gingiva: dentition normal and gingiva normal Throat: Yes posterior oropharynx normal, Yes tonsils normal and Yes uvula midline Eyes Conjunctivae: conjunctivae normal Sclerae: sclerae normal Pupils: Equal, round and reactive pupils present EOM: EOMs intact bilaterally Direct Ophthalmoscopy: No no photophobia Neck Neck: Yes no lymphadenopathy, No tender and Yes no JVD Thyroid: Thyroid normal Carotids: no bruits Chest Chest palpation & inspection: no tenderness Resp Effort & Inspection: normal respiratory effort, no audible wheezes, not labored and no stridor Auscultation: no crackles, no rales, no rhonchi and no wheezes Cardio Jugular venous distension: no JVD Rate: regular rate, not bradycardic and not tachycardic Rhythm: regular rhythm Bruits: no carotid bruits Peripheral pulses: Peripheral pulses 2+ throughout GI Inspection: Yes normal to inspection, No abdominal wall ecchymosis and No visible herniation Palpation (GI): Soft to palpation, nontender, no guarding, not rigid and No hepatosplenomegaly present Auscultation: normoactive bowel sounds General: Yes no CVA tenderness Back/Spine/Pelvis Back: no CVA tenderness and No back tenderness Cervical Spine: cervical ROM normal Thoracic/Lumbar Spine: thoracic and lumbar spine normal to inspection, straight leg raise negative bilaterally, No thoraco-lumbar ROM limited and No lumbar spinal tenderness Skin Lesions: no lesions Rashes: no rashes Wounds: no wounds Neuro General: oriented to person, oriented to place, patient oriented x3, CN's II-XI intact bilaterally and No confusion Cranial nerves: Yes Equal, round and reactive pupils present and Yes Normal accommodation reflex present Cognition (Neuro): normal cognition Speech: No Abnormal speech present Gait exam (Neuro): Normal gait present Motor exam (neuro): 5/5 motor strength present throughout Extrem Right upper extremity: full ROM; no cyanosis Left upper extremity: full ROM; no cyanosis Right lower extremity: no edema Left lower extremity: no edema Psych Appearance: grossly normal Mental Status: mental status grossly normal Affect: normal affect Attitude: cooperative Thought process: Normal thought process present Assessment and Plan Assessment & Plan (1) Annual physical exam: Code(s): Z00.00 - Encounter for general adult medical examination without abnormal findings (2) ADHD: Code(s): F90.9 - Attention-deficit hyperactivity disorder, unspecified type Qualifiers: Attention deficit-hyperactivity disorder type: predominantly inattentive Qualified Code(s): F90.0 - Attention-deficit hyperactivity disorder, predominantly inattentive type Plan: Patient is to continue Adderall 10 mg daily as prescribed. She denies any side effects from the stimulant medication. (3) CHIARA (generalized anxiety disorder): Code(s): F41.1 - Generalized anxiety disorder Plan: Continue escitalopram 5 mg daily, She reports her anxiety is fairly well controlled with current dose of SSRI therapy. (4) Obese: Code(s): E66.9 - Obesity, unspecified Qualifiers: Obesity type: due to excess calories Obesity classification: adult class 1 (BMI 30 - 34.9) Serious obesity comorbidity presence: without serious comorbidity Body mass index: BMI 32.0-32.9 Qualified Code(s): E66.09 - Other obesity due to excess calories; Z68.32 - Body mass index [BMI] 32.0-32.9, adult Plan: Now on Wegovy 1 mg daily. Has lost a significant amount of weight since starting GLP 1.. She feels great though has minor side effects from the GLP 1 that are tolerable. Today's BMI at 25 She reports her goal weight is to be 135 lbs. Coding Level of Care Code Est Pt Prev Care 18-39y(10366) Diagnoses Annual physical exam Z00.00 Attention deficit hyperactivity disorder (ADHD), predominantly inattentive type F90.0 Attention deficit-hyperactivity disorder type: predominantly inattentive CHIARA (generalized anxiety disorder) F41.1 Class 1 obesity due to excess calories without serious comorbidity with body mass index (BMI) of 32.0 to 32.9 in adult E66.09; Z68.32 Obesity type: due to excess calories Obesity classification: adult class 1 (BMI 30 - 34.9) Serious obesity comorbidity presence: without serious comorbidity Body mass index: BMI 32.0-32.9 Additional Codes CHIARA-7 Assessment Billing - CHIARA-7 Assessment Tool: CHIARA-7 Assessment [id number] ([id number])
== END 2024-08-01 08:33 | disposition home or self-care (01) ==
PROVIDERS: PCP Physician Assistant; Visit Provider Physician Assistant
DX: Z00.00 Encounter for general adult medical examination without abnormal findings (principal); F90.0 Attention-deficit hyperactivity disorder, predominantly inattentive type; F41.1 Generalized anxiety disorder; E66.09 Other obesity due to excess calories; Z68.32 Body mass index [BMI] 32.0-32.9, adult

== ENCOUNTER 2024-08-30 07:28 | Outpatient (REF) | payer OTHER, SELFPAY ==
--- NOTE | ~2024-08-30 | MM_ITS ---
EXAMINATION: MM SCREENING DIGITAL BREAST TOMOSYNTHESIS, BILATERAL CLINICAL INFORMATION: Screening. Asymptomatic. COMPARISON: Mammography: Comparison is made with available priors TECHNIQUE: Digital breast mammography with tomosynthesis is performed in both the craniocaudal and mediolateral oblique views along with computer-aided detection (CAD). FINDINGS: The breasts are heterogeneously dense, which may obscure small masses (ACR BI-RADS breast composition Category c). There are no significant masses, abnormal calcifications, or other abnormalities. MM/MM tomosynthesis screening BI IMPRESSION: No mammographic evidence of malignancy. ASSESSMENT: BI-RADS BI-RADS 1 - Negative RECOMMENDATION: Routine annual mammography screening. 1 year F/U This examination should not preclude the clinical evaluation of a suspicious palpable abnormality. This patient's information was entered into a reminder system with a target due date for their next mammogram. Electronically signed by: Vicenta Murphy DO 09/11/2024 12:19 PM EDT
== END 2024-08-30 07:29 | disposition home or self-care (01) ==
LOC: HO.MAMMO 07:28
PROVIDERS: PCP Physician Assistant; Visit Provider Physician Assistant
DX: Z12.31 Encounter for screening mammogram for malignant neoplasm of breast (principal)
CPT/HCPCS: 77063; 77067

== ENCOUNTER → 2024-08-30 07:30 | Outpatient (BNV) | payer OTHER, SELFPAY | PROVIDERS: PCP Physician Assistant; Visit Provider Internal Medicine | DX: Z12.31 Encounter for screening mammogram for malignant neoplasm of breast (principal) | CPT/HCPCS: 77063; 77067 ==

== ENCOUNTER 2024-12-10 14:03 | Outpatient (AMB) | payer OTHER, SELFPAY ==
--- NOTE | 2024-12-10 14:10 | A.OFFPC_ITS ---
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 Concern--->the patient experiences migraines, which she reports have been occurring since childhood and were worsening recently. She notes an incident a few weeks ago when she had severe headaches accompanied by nausea, which led her to visit the hospital. She was given medication at the hospital and reported high blood pressure during the visit. The blood pressure has been noted to be slightly elevated during today's visit, but not alarmingly high. She expresses concern about her blood pressure, as she has not had issues previously. .. ADHD:? Patient continues on low-dose Adderall with good effect on her her attention of focus on job tasks.? Continues to work part-time and now at a new job which she is doing well with. .. Generalized anxiety disorder:? Continues on SSRI therapy and doing well. Her mental Health/anxiety has been better even since losing weight :Obesity: Has started Wegovy and has lost significant amount of weight. Today's BMI at 24. She has been using Wegovy once a month at 1.7 mg has a maintenance dose and feels great. [facility] Surgical History No pertinent past surgical history Family History Father No problems noted. 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 Current occupational exposures/hazards: No Cognitive needs: No Hearing needs: No Vision needs: Yes (Glasses) Questionnaire Thrive Questionnaire Date Thrive assessed: 12/10/24 I am a: Patient What is your living situation today?: I have a steady place to live Within the past 12 months, did the food you bought not last and you didn't have the money to get more?: Never true Within the past 12 months, did you worry whether your food would run out before you got money to buy more?: Never true Do you have trouble paying for medicines?: No Do you have trouble getting transportation to medical appointments?: No Do you have trouble paying your heating and electricity bill?: No Do you have trouble taking care of your child, family member or friend?: No Do you have trouble with day-to-day activities such as bathing, preparing meals, shopping, managing finances, etc.?: No Are you currently unemployed and looking for a job?: No Are you interested in more education?: No Please select the resources that you would like help with: None Currently or been in a relationship where the following occur: No concerns reported THRIVE Score: 0 AUDIT C Alcohol Use Questionnaire (AUDIT-C) 2. How many drinks containing alcohol do you have on a typical day when you are drinking?: 1 or 2 3. How often do you have six or more drinks on one occasion?: Never Total Score: 0 CHIARA-7 AMB Questionnaire CHIARA-7 Date CHIARA - 7 assessed: 08/01/24 (pt on RX for anxiety ) Source: Developed by Drs. Tj Bustillos, Alka Ybarra, Chandan Lorenz and colleagues, with an educational ann-marie from [employer]. Review of Systems Const Reports headache(s) Eyes Denies loss of vision ENT Denies vertigo, Denies dizziness, Reports headache(s) and Denies sore throat Card Denies chest pain, Denies leg edema and Denies lightheadedness Resp Denies cough, Denies hemoptysis and Denies wheezing GI Denies abdominal pain, Denies melena, Denies constipation, Denies diarrhea and Denies vomiting Denies urinary frequency, Denies dysuria and Denies urinary urgency Musc Denies arthralgias, Denies joint swelling, Denies numbness and Denies tingling Neuro Denies Abnormal speech present, Denies behavioral changes, Denies vertigo, Denies dizziness, Reports headache(s), Denies loss of vision, Denies memory loss, Denies numbness and Denies tingling Psych Denies anxiety, Denies behavioral changes, Denies depression, Denies memory loss and Denies panic attacks Juan Manuel/Lymph Denies easy bleeding and Denies easy bruising Aller/Immun Denies wheezing Physical exam (Primary Care) Vital Signs: Last Vital Signs Temp 97.1 F 12/10/24 14:11 Pulse 102 H 12/10/24 14:11 BP 132/90 H 12/10/24 14:11 Pulse Ox 99 12/10/24 14:11 Oxygen Delivery Method Room Air 12/10/24 14:11 BMI result Body Mass Index 24.0 Tobacco/Smoking Status: Tobacco use Status Tobacco use date assessed 04/02/24 12/10/24 14:11 Patient Tobacco Use Status Never used Tobacco 12/10/24 14:11 e-Cigarette/Vaping Use Never Used 12/10/24 14:11 Thrive Assessment: Date of Thrive Assessment Date Thrive assessed 12/10/24 12/10/24 14:11 Currently or been in a relationship where the following occur: No concerns reported Const General: healthy appearing, no acute distress, alert and awake Nutritional Appearance: well nourished Orientation/consciousness: oriented to person, oriented to place and oriented to time HENMT Ears: TM's normal bilaterally General nose exam: Normal nasal mucous membranes and turbinates present Eyes Conjunctivae: conjunctivae normal Sclerae: sclerae normal Pupils: Equal, round and reactive pupils present Neck Neck: Yes no lymphadenopathy and Yes no JVD Thyroid: Thyroid normal Carotids: no bruits Resp Effort & Inspection: normal respiratory effort and not tachypneic Auscultation: no crackles, no rales, no rhonchi and no wheezes Cardio Rate: regular rate Rhythm: regular rhythm Heart sounds: no murmurs and normal S1 and S2 GI Palpation (GI): Soft to palpation, nontender, no hepatomegaly and no splenomegaly Auscultation: normal bowel sounds Skin General skin exam: no rashes or lesions noted and dry skin Neuro General: oriented to person, oriented to place and oriented to time Cranial nerves: Yes Equal, round and reactive pupils present Speech: No Abnormal speech present Gait exam (Neuro): Normal gait present Motor exam (neuro): no tremor noted Extrem Right upper extremity: full ROM Left upper extremity: full ROM Right lower extremity: full ROM; no edema Left lower extremity: full ROM; no edema Psych Mental Status: mental status grossly normal Speech and movement: Normal speech and movement present Affect: normal affect Attitude: cooperative Thought process: Normal thought process present Coding Level of Care Code Est Pt Level 4 (07802) Diagnoses Attention deficit hyperactivity disorder (ADHD), predominantly inattentive type F90.0 Attention deficit-hyperactivity disorder type: predominantly inattentive Screening for diabetes mellitus (DM) Z13.1 Migraine without status migrainosus, not intractable, unspecified migraine type G43.909 Migraine type: unspecified Status migrainosus presence: without status migrainosus Intractability: not intractable Assessment & Plan Assessment & Plan (1) ADHD: Code(s): F90.9 - Attention-deficit hyperactivity disorder, unspecified type Category: Medical Qualifiers: Attention deficit-hyperactivity disorder type: predominantly inattentive Qualified Code(s): F90.0 - Attention-deficit hyperactivity disorder, predominantly inattentive type Plan: Patient continues on Adderall 10 mg extended release with good effect. 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 She denies any side effects stimulant ADHD medication. (2) Screening for diabetes mellitus (DM): Code(s): Z13.1 - Encounter for screening for diabetes mellitus Category: Medical Plan: As per HPI (3) Migraines: Code(s): G43.909 - Migraine, unspecified, not intractable, without status migrainosus Category: Medical Qualifiers: Migraine type: unspecified Status migrainosus presence: without status migrainosus Intractability: not intractable Qualified Code(s): G43.909 - Migraine, unspecified, not intractable, without status migrainosus Plan: I recommended starting Sumatriptan to abort migraines, particularly given the recent escalation in frequency and severity. I explained that ongoing monitoring of blood pressure is important Plan MAINTENANCE WEIGHT REDUCTION- CONTINUES WITH WEGOVY 1.7 MG ON MONTHLY BASIS HAS A MAINTENANCE WEIGHT LOSS MEDICATION. SHE HAS BEEN BUFFET SIGNIFICANTLY WITH INCREASED ENERGY, INCREASED CONFLUENCE SINCE, BETTER CARDIOVASCULAR HEALTH. Orders: Orders Comprehensive [place]. Panel Fast Today Z13.1 - Encounter for screening for diabetes mellitus Medications: New sumatriptan succinate take 1 tab at onset of headache; if no relief may repeat 1 tab after at least 2 hrs; max = 4 tabs/24 hr PO 30 days 9 tabs 1RF G43.909 - Migraine, unspecified, not intractable, without status migrainosus Refilled dextroamphetamine-amphetamine 10 mg ER 10 mg PO DAILY 30 days 30 caps 0RF F90.0 - Attention-deficit hyperactivity disorder, predominantly inattentive type
[2024-12-10 14:11] VITALS: BP 132/90; PULSE 102; TEMP 36.2; O2SAT 99; BMI 24.0
[2024-12-10 14:38] VITALS: BP 117/70
--- OUTSIDE RECORDS SUMMARY | 2024-12-10 18:34 | XMS_ITS | Encounter Summary ---
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 Name Role Phone Unavailable Primary Care Provider Unavailabl e Encounter Details Date Type Department Care Team (Late st Contact Info) Description 03/21/2015 [place]ation [facility] [place] [facility] [place] [address] Family Medicine, Physician [facility] [place] [address] Social History Tobacco Use Types Packs/Day Years Used Date Smoking Tobacco: Never Assessed Comments Unknown Sex and Gender Information Value Date Recorded Sex Assigned at Not on file Legal Sex Female 4:09 PM EDT Gender Identity Not on file Sexual Orientation Not on file documented as of this encounter Plan of Treatment Not on file documented as of this encounter Visit Diagnoses Not on filedocumented in this encounter
--- OUTSIDE RECORDS SUMMARY | 2024-12-10 18:34 | XMS_ITS | Clinical Summary ---
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 Name Role Phone Unavailable Primary Care Provider Unavailabl e Immunizations Name Administration Dates Next Due DTP 07/11/1991, 8,03/12/1987,12/06/18 87,1986 Hep B, ped/adol 07/01/1999,01/15/1999,12/17/1998 Hib (HbOC) 09/06/1988 MMR 12/17/1998,12/11/1987 OPV 07/11/1991, 8,1986,09/11/19 86 Td (adult) (Teniva), 5 Lf t etanus toxoid, PF, adsorbed 01/15/1999 Social History Tobacco Use Types Packs/Day Years Used Date Smoking Tobacco: Never Assessed Comments Unknown Sex and Gender Information Value Date Recorded Sex Assigned at Not on file Legal Sex Female 4:09 PM EDT Gender Identity Not on file Sexual Orientation Not on file Plan of Treatment Health Maintenance Due Date Last Done Comments DTaP,Tdap,and Td Vaccines (6 - Tdap) 01/16/1999 01/15/1999, 07/11/1991, 01/27/1988, Additional history exists Varicella Vaccines (1 of 2 - 13+ 2-dose series) 1999 Influenza Vaccines (#1) 2024 COVID-19 Vaccine (2023- season) 2024 HIB Vaccines Completed 09/06/1988 IPV Vaccines Completed 07/11/1991, 01/12, 1986, Additional history exists MMR Vaccines Completed 12/17/1998, 12/11/1987 Hepatitis B Vaccines Completed 07/01/1999, 01/15/1999, 12/17/1998 HPV Vaccines Aged Out No longer eligi ble based on patient's age to complete this topic Hepatitis A Vaccines Aged Out No long er eligible based on patient's age to complete this topic Men B Vaccine Aged Out No longer elig ible based on patient's age to complete this topic Meningococcal Vaccine Aged Out No narciso katia eligible based on patient's age to complete this topic Pneumococcal Vaccine Aged Out No long er eligible based on patient's age to complete this topic
--- OUTSIDE RECORDS SUMMARY | 2024-12-10 18:34 | XMS_ITS ---
Author Name [facility] Organization Unknown History of Medication Use Medication Directions Dispensed Refills Start Date End Date Stat dextroamphetamine-am phetamine Take (oral)[id number], Extended Release 24 hrNo frequency recordedoralNo set duration recordedNo set duration amount [id number] 01/02/2024 active Problems Problem Status Onset Date Problem Type Date of Resoluti on Source Acute upper respiratory infection, unspecified active 2024-02-14 ProblemAct [facility] Anxiety disorder, unspecified active ProblemAct [facility] Attention-deficit hyperactivity disorder, unspecified type active ProblemAct [facility]
--- OUTSIDE RECORDS SUMMARY | 2024-12-10 18:34 | XMS_ITS | Encounter Summary ---
Author Organization [facility] Address [id number] [place] [id number] Care Team Providers Care Regional Economist Name Role Phone Jerry Lugo Primary Care Provider [phone] Reason for Visit * Reason Comments Headache Encounter Details Date Type Department Care Team (Late st Contact Info) Description 12/01/2024 11:35 AM EST - 12/01/2024 2:47 PM EST Emergency [facility] Emergency [address] [place] [id number] Harry Wilson MD [address] [place] [address] Periodic headache syndrome, not intractable (Primary Dx) Discharge Disposition: Home or Self Care Social History Tobacco Use Types Packs/Day Years Used Date Smoking Tobacco: Never Assessed Sex and Gender Information Value Date Recorded Sex Assigned at Not on file Gender Identity Not on file Sexual Orientation Not on file Job Start Date Occupation Industry Not on file Not on file Not on file documented as of this encounter Last Filed Vital Signs Vital Sign Reading Time Taken Comments Blood Pressure 138/94 12/01/2024 2:34 PM EST Pulse 75 12/01/2024 2:34 PM EST Temperature 36.8 ??C (98.2 ??F) 12/01/2024 11:[address] Respiratory Rate 18 12/01/2024 2:34 PM EST Oxygen Saturation 100% 12/01/2024 2:34 PM EST Inhaled Oxygen Concentration - - Weight 59 kg (130 lb) 12/01/2024 11:40 AM EST Height 157.5 cm (5' 2 ) 12/01/2024 11:40 AM EST Body Mass Index 23.78 12/01/2024 11:40 AM EST documented in this encounter Discharge Instructions * Discharge Instructions* Harry Wilson MD - 12/01/2024 2:04 PM EST Evaluated with prolonged headache, had CT of the brain that was unremarkable inflammatory markers, otherwise physical examination, vital signs and the rest of blood work has been reassuring, CT did not reveal any brain masses, bleeding or any evidence of sinusitis etc. I suspect this is either tension headache or the migraine headache that you have, I recommend staying on top of Tylenol 975 mg every 6 hours as needed, adding ibuprofen 400 mg every 6 hours as needed and you have Fioricet available to take as prescribed, follow-up with PCP any other issues concerns come back to the ER documented in this encounter Medications at Time of Discharge Medication Sig Dispensed Refills Start Date End Date butalbital-acetaminophen -caffeine (FIORICET, ESGIC) 50-325-40 mg per tablet Take 2 tablets by mouth every 8 (eight) hours for 5 days. 30 each 12/01/2024 12/06/2024 documented as of this encounter Ordered Prescriptions Prescription Sig Dispensed Refills Start Date End Da te butalbital-acetaminophen- caffeine (FIORICET, ESGIC) 50-325-40 mg per tablet Take 2 tablets by mouth every 8 (eight) hours for 5 days. 30 each 12/01/2024 12/06/2024 documented in this encounter Discharge Disposition Disposition Code Departure Means Destination Comment s Home or Self Care documented in this encounter Progress Notes * Nasra Fraire RN - 12/01/2024 11:41 AM EST Patient reports headache, dizziness, nausea and neck pain since Tuesday. Patient reports history of migraine but this one was the worst she has had. * Harry Wilson MD - 12/01/2024 11:28 AM EST Emergency Medicine Note Patient Name: Latasha Munoz Initial Evaluation: 12/01/2024 : 1985 Patient's PCP: SHIRLENE Mcmanus Emergency Physician: Harry Wilson MD History of Present Illness Chief Complaint: Chief Complaint Patient presents with Headache HPI: See MDM ROS: I have performed a ROS with the pertinent positives and negatives documented in the history ofpresent illness. Previous History No past medical history on file. No past surgical history on file. No family history on file. has No Known Allergies. No current facility-administered medications on file prior to encounter. No current outpatient medications on file prior to encounter. Physical Exam ED Triage Vitals [12/01/24 1140] Temp Heart Rate Resp BP 36.8 ??C (98.2 ??F) 84 18 137/87 SpO2 Temp Source Heart Rate Source Patient Position 100 % Oral Left;Radial Sitting BP Location FiO2 (%) Left arm;Upper -- See MDM Results Labs Reviewed CBC WITH AUTO DIFFERENTIAL - Abnormal Result Value WBC 3.8 (*) RBC 3.70 (*) Hemoglobin 10.7 (*) Hematocrit 32.7 (*) MCV 89.6 MCH 29.3 MCHC 32.7 RDW 13.9 Platelets 197 MPV 9.6 NRBC 0.0 NRBC Absolute 0.00 Neutrophils Relative 45.9 Lymphocytes Relative 40.1 Monocytes Relative 10.8 Eosinophils Relative 2.4 Basophils Relative 0.5 Immature Granulocytes Relative 0.3 Neutrophils Absolute 1.74 Lymphocytes Absolute 1.52 Monocytes Absolute 0.41 Eosinophils Absolute 0.09 Basophils Absolute 0.02 Immature Granulocytes Absolute 0.01 BASIC METABOLIC PANEL - Normal Sodium 139 Potassium 4.1 Chloride 108 CO2 28 Anion Gap 3 Glucose 97 BUN 12 Creatinine 0.75 eGFR 105 BUN/Creatinine Ratio 16.0 Calcium 8.7 SEDIMENTATION RATE - Normal Sed Rate 2 C-REACTIVE PROTEIN - Normal C-Reactive Protein <0.29 POC , URINE DIAGNOSTIC - Normal HCG, Ur POC Negative POC hCG Int QC Pass? Yes CBC AND DIFFERENTIAL Narrative: The following orders were created for panel order CBC and differential. Procedure Abnormality Status --------- ------ CBC auto differential[[id number]] Abnormal Final result Please view results for these tests on the individual orders. Abnormal Labs Reviewed CBC WITH AUTO DIFFERENTIAL - Abnormal; Notable for the following components: Result Value WBC 3.8 (*) RBC 3.70 (*) Hemoglobin 10.7 (*) Hematocrit 32.7 (*) All other components within normal limits CT Head wo Contrast Final Result No acute intracranial process seen. -------- FINAL REPORT -------- Dictated By: Gerson Bhat Dictated Date: 12/01/2024 13:40 ET Assigned Physician: Gerson Bhat Reviewed and Electronically Signed By: Gerson Bhat Signed Date: 12/01/2024 13:42 ET Workstation ID: [id number] Transcribed By: Self Edit Transcribed Date: 12/01/2024 13:40 ET I have discussed the incidental/abnormal imaging and/or lab abnormalities with the patient and haveinstructed them the need for further evaluation and workup with their primary care doctor. I have provided the patient with a paper copy of the abnormality. The laboratory results, imaging results and other diagnostic exam results were reviewed in the EMR. EKG Interpretation Critical Care Time None ? Medical Decision Making Medications svvlbxvpgp-onznwogokuisr-zizankhd (FIORICET, ESGIC) 50-325-40 mg per tablet 2 tablet (has no administration in time range) ketorolac (TORADOL) injection 15 mg (has no administration in time range) sodium chloride 0.9 % bolus 1,000 mL (1,000 mL intravenous New Bag 12/01/24 1207) LORazepam (ATIVAN) injection 1 mg (1 mg intravenous Given 12/01/24 1207) ondansetron (PF) (ZOFRAN) injection 4 mg (4 mg intravenous Given 12/01/24 1207) ED Course as of 12/01/24 1404 Sat Dec 01, 2024 1146 39-year-old woman presenting with worsening headache for the past 4 days, has history of migraines, feels pressure around her eyes, stiffness in her upper back no fevers or chills slight nausea no vomiting, patient is ambulatory. This is not a sudden onset of headache of severe intensity. [KV] 1148 Overall well-appearing young woman, she presented to emergency department ambulatory, moving upper lower extremities symmetrically no new meningismus, pupils 3 mm reactive bilaterally Alert and orient x 4 [KV] 1149 considerations include classic migraine, tension headache, sinusitis, less likely subdural hemorrhage, no risk factors for venous thrombosis, no evidence for stroke, she is otherwise well-appearing I will obtain imaging as she has some atypical symptoms, there is no fevers to suspect meningitis, symptomatic control reevaluation disposition to home anticipated [KV] 1341 Reevaluated, she is beginning to feel better [KV] 1357 EXAMINATION: CT brain without contrast. CLINICAL INDICATION: Headache and migraine. COMPARISON: None. TECHNIQUE: 2.5 minutes and axial and reformatted 3 mm thin sagittal and coronal images of brain were obtained. FINDINGS: There is no acute intra-axial, extra-axial bleed, masses or midline shift. No acute infarction or lesion. There is no edema. The greater white matter differentiation is maintained normal. The lateral ventricles are symmetrical in size and configuration without enlargement. Bone windows reveal no calvarial abnormality. Bilateral paranasal sinuses and mastoid air cells are well-aerated. IMPRESSION: No acute intracranial process seen. [KV] [address] findings will give additional pain medication anticipating discharge [KV] ED Course User Index [KV] Harry Wilson MD Clinical Impressions as of 12/01/24 1404 Periodic headache syndrome, not intractable Procedures Diagnosis 1. Periodic headache syndrome, not intractable Disposition Discharge ED Prescriptions Medication Sig Dispense Start Date End Date Auth. Provider bhtnfryfrc-xnmwxbbhtnhlp-xlsycwgw (FIORICET, ESGIC) 50-325-40 mg per tablet Take 2 tablets by mouthevery 8 (eight) hours for 5 days. 30 each 12/01/2024 12/06/2024 Harry Wilson MD Physician Attestation Emergency Medicine Note Patient Name: Latasha Munoz Initial Evaluation: 12/01/2024 : 1985 Patient's PCP: SHIRLENE Mcmanus Emergency Physician: Harry Wilson MD History of Present Illness Chief Complaint: Chief Complaint Patient presents with Headache HPI: See MDM ROS: I have performed a ROS with the pertinent positives and negatives documented in the history ofpresent illness. Previous History No past medical history on file. No past surgical history on file. No family history on file. has No Known Allergies. No current facility-administered medications on file prior to encounter. No current outpatient medications on file prior to encounter. Physical Exam ED Triage Vitals [12/01/24 1140] Temp Heart Rate Resp BP 36.8 ??C (98.2 ??F) 84 18 137/87 SpO2 Temp Source Heart Rate Source Patient Position 100 % Oral Left;Radial Sitting BP Location FiO2 (%) Left arm;Upper -- See MDM Results Labs Reviewed CBC WITH AUTO DIFFERENTIAL - Abnormal Result Value WBC 3.8 (*) RBC 3.70 (*) Hemoglobin 10.7 (*) Hematocrit 32.7 (*) MCV 89.6 MCH 29.3 MCHC 32.7 RDW 13.9 Platelets 197 MPV 9.6 NRBC 0.0 NRBC Absolute 0.00 Neutrophils Relative 45.9 Lymphocytes Relative 40.1 Monocytes Relative 10.8 Eosinophils Relative 2.4 Basophils Relative 0.5 Immature Granulocytes Relative 0.3 Neutrophils Absolute 1.74 Lymphocytes Absolute 1.52 Monocytes Absolute 0.41 Eosinophils Absolute 0.09 Basophils Absolute 0.02 Immature Granulocytes Absolute 0.01 BASIC METABOLIC PANEL - Normal Sodium 139 Potassium 4.1 Chloride 108 CO2 28 Anion Gap 3 Glucose 97 BUN 12 Creatinine 0.75 eGFR 105 BUN/Creatinine Ratio 16.0 Calcium 8.7 SEDIMENTATION RATE - Normal Sed Rate 2 C-REACTIVE PROTEIN - Normal C-Reactive Protein <0.29 POC , URINE DIAGNOSTIC - Normal HCG, Ur POC Negative POC hCG Int QC Pass? Yes CBC AND DIFFERENTIAL Narrative: The following orders were created for panel order CBC and differential. Procedure Abnormality Status --------- ------ CBC auto differential[[id number]] Abnormal Final result Please view results for these tests on the individual orders. Abnormal Labs Reviewed CBC WITH AUTO DIFFERENTIAL - Abnormal; Notable for the following components: Result Value WBC 3.8 (*) RBC 3.70 (*) Hemoglobin 10.7 (*) Hematocrit 32.7 (*) All other components within normal limits CT Head wo Contrast Final Result No acute intracranial process seen. -------- FINAL REPORT -------- Dictated By: Gerson Bhat Dictated Date: 12/01/2024 13:40 ET Assigned Physician: Gerson Bhat Reviewed and Electronically Signed By: Gerson Bhat Signed Date: 12/01/2024 13:42 ET Workstation ID: [id number] Transcribed By: Self Edit Transcribed Date: 12/01/2024 13:40 ET I have discussed the incidental/abnormal imaging and/or lab abnormalities with the patient and haveinstructed them the need for further evaluation and workup with their primary care doctor. I have provided the patient with a paper copy of the abnormality. The laboratory results, imaging results and other diagnostic exam results were reviewed in the EMR. EKG Interpretation Critical Care Time None ? Medical Decision Making Medications itwktwymzx-nowpyaisegwdf-gvxkohjh (FIORICET, ESGIC) 50-325-40 mg per tablet 2 tablet (has no administration in time range) ketorolac (TORADOL) injection 15 mg (has no administration in time range) sodium chloride 0.9 % bolus 1,000 mL (1,000 mL intravenous New Bag 12/01/24 1207) LORazepam (ATIVAN) injection 1 mg (1 mg intravenous Given 12/01/24 1207) ondansetron (PF) (ZOFRAN) injection 4 mg (4 mg intravenous Given 12/01/24 1207) ED Course as of 12/01/24 1404 Sat Dec 01, 2024 1146 39-year-old woman presenting with worsening headache for the past 4 days, has history of migraines, feels pressure around her eyes, stiffness in her upper back no fevers or chills slight nausea no vomiting, patient is ambulatory. This is not a sudden onset of headache of severe intensity. [KV] 1148 Overall well-appearing young woman, she presented to emergency department ambulatory, moving upper lower extremities symmetrically no new meningismus, pupils 3 mm reactive bilaterally Alert and orient x 4 [KV] 1149 considerations include classic migraine, tension headache, sinusitis, less likely subdural hemorrhage, no risk factors for venous thrombosis, no evidence for stroke, she is otherwise well-appearing I will obtain imaging as she has some atypical symptoms, there is no fevers to suspect meningitis, symptomatic control reevaluation disposition to home anticipated [KV] 1341 Reevaluated, she is beginning to feel better [KV] 1357 EXAMINATION: CT brain without contrast. CLINICAL INDICATION: Headache and migraine. COMPARISON: None. TECHNIQUE: 2.5 minutes and axial and reformatted 3 mm thin sagittal and coronal images of brain were obtained. FINDINGS: There is no acute intra-axial, extra-axial bleed, masses or midline shift. No acute infarction or lesion. There is no edema. The greater white matter differentiation is maintained normal. The lateral ventricles are symmetrical in size and configuration without enlargement. Bone windows reveal no calvarial abnormality. Bilateral paranasal sinuses and mastoid air cells are well-aerated. IMPRESSION: No acute intracranial process seen. [KV] [address] findings will give additional pain medication anticipating discharge [KV] ED Course User Index [KV] Harry Wilson MD Clinical Impressions as of 12/01/24 1404 Periodic headache syndrome, not intractable Procedures Diagnosis 1. Periodic headache syndrome, not intractable Disposition Discharge ED Prescriptions Medication Sig Dispense Start Date End Date Auth. Provider mksfdcskma-sfbuhylegqwpz-gfpsrjgj (FIORICET, ESGIC) 50-325-40 mg per tablet Take 2 tablets by mouthevery 8 (eight) hours for 5 days. 30 each 12/01/2024 12/06/2024 Harry Wilson MD Physician Attestation Harry Wilson MD 12/01/24 1150 Harry Wilson MD 12/01/24 1400 Harry Wilson MD 12/01/24 1404 Harry Wilson MD 12/01/242008 documented in this encounter Plan of Treatment Not on file documented as of this encounter Procedures Procedure Name Priority Date/Time Associated Diagnosis Comments CT HEAD WO CONTRAST STAT 12/01/2024 1 :32 PM EST POC , URINE DIAGNOSTIC STAT 12/01/2024 1:06 PM EST CBC WITH AUTO DIFFERENTIAL STAT 12/01/2024 12:05 PM EST SEDIMENTATION RATE STAT 12/01/2024 12 :05 PM EST CBC AND DIFFERENTIAL STAT 12/01/2024 12:05 PM EST C-REACTIVE PROTEIN STAT 12/01/2024 12 :05 PM EST BASIC METABOLIC PANEL STAT 12/01/2024 12:05 PM EST documented in this encounter Results * CT Head wo Contrast (12/01/2024 1:32 PM EST) Anatomical Region Laterality Modality Head and Neck Computed Tomogra phy 12/01/2024 1:40 PM EST Impressions 12/01/2024 1:42 PM EST No acute intracranial process seen. -------- FINAL REPORT -------- Dictated By: Gerson Bhat Dictated Date: 12/01/2024 13:40 ET Assigned Physician: Gerson Bhat Reviewed and Electronically Signed By: Gerson Bhat Signed Date: 12/01/2024 13:42 ET Workstation ID: [id number] Transcribed By: Self Edit Transcribed Date: 12/01/2024 13:40 ET Narrative 12/01/2024 1:42 PM EST EXAMINATION: CT brain without contrast. CLINICAL INDICATION: Headache and migraine. COMPARISON: None. TECHNIQUE: 2.5 minutes and axial and reformatted 3 mm thin sagittal and coronal images of brain were obtained. FINDINGS: There is no acute intra-axial, extra-axial bleed, masses or midline shift. No acute infarction or lesion. There is no edema. The greater white matter differentiation is maintained normal. The lateral ventricles are symmetrical in size and configuration without enlargement. Bone windows reveal no calvarial abnormality. Bilateral paranasal sinuses and mastoid air cells are well-aerated. Procedure Note Gerson Bhat MD - 12/01/2024 EXAMINATION: CT brain without contrast. CLINICAL INDICATION: Headache and migraine. COMPARISON: None. TECHNIQUE: 2.5 minutes and axial and reformatted 3 mm thin sagittal andcoronal images of brain were obtained. FINDINGS: There is no acute intra-axial, extra-axial bleed, masses ormidline shift. No acute infarction or lesion. There is no edema. Thegreater white matter differentiation is maintained normal. The lateralventricles are symmetrical in size and configuration without enlargement.Bone windows reveal no calvarial abnormality. Bilateral paranasal sinusesand mastoid air cells are well-aerated. IMPRESSION: No acute intracranial process seen. -------- FINAL REPORT -------- Dictated By: Gerson Bhat Dictated Date: 12/01/2024 13:40 ET Assigned Physician: Gerson Bhat Reviewed and Electronically Signed By: Gerson Bhat Signed Date: 12/01/2024 13:42 ET Workstation ID: [id number] Transcribed By: Self Edit Transcribed Date: 12/01/2024 13:40 ET Harry Wilson MD IMG CT PROCEDURES * POC , urine manually resulted (12/01/2024 1:06 PM EST) HCG, Ur POC Negative Negative POC hCG Int QC Pass? Yes Yes Urine Urine specimen obtained by clean catch procedure / Unknown 12/01/2024 1:06 PM EST Harry Wilson MD POINT OF CARE LUCAS T ENTER/EDIT ORDERABLES * (ABNORMAL) CBC auto differential (12/01/2024 12:05 PM EST) [facility] WBC 3.8(L) 4.8 - 10.8 K/mcL LAB HEMETOLOGY METHOD 12/01/2024 12:55 PM [facility] RBC 3.70(L) 3.80 - 4.80 M/mcL LAB HEMETOLOGY METHOD 12/01/2024 12:55 PM [facility] Hemoglobin 10.7(L) 11.5 - 16.0 g/dL LAB HEMETOLOGY METHOD 12/01/2024 12:55 PM [facility] Hematocrit 32.7(L) 35.0 - 47.0 % LAB HEMETOLOGY METHOD 12/01/2024 12:55 PM [facility] MCV 89.6 79.0 - 98.0 FL LAB HEMETOLOGY METHOD 12/01/2024 12:55 PM [facility] MCH 29.3 27.0 - 32.0 pcg LAB HEMETOLOGY METHOD 12/01/2024 12:55 PM [facility] MCHC 32.7 32.0 - 37.0 g/dL LAB HEMETOLOGY METHOD 12/01/2024 12:55 PM [facility] RDW 13.9 11.0 - 15.0 % LAB HEMETOLOGY METHOD 12/01/2024 12:55 PM [facility] Platelets 197 130 - 400 K/mcL LAB HEMETOLOGY METHOD 12/01/2024 12:55 PM [facility] MPV 9.6 7.0 - 11.0 FL LAB HEMETOLOGY METHOD 12/01/2024 12:55 PM [facility] NRBC 0.0 <1.0 % LAB HEMETOLOGY METHOD 12/01/2024 12:55 PM [facility] NRBC Absolute 0.00 <0.10 K/mcL LAB HEMETOLOGY METHOD 12/01/2024 12:55 PM [facility] Neutrophils Relative 45.9 % LAB HEMETOLOGY METHOD 12/01/2024 12:55 PM [facility] Lymphocytes Relative 40.1 % LAB HEMETOLOGY METHOD 12/01/2024 12:55 PM [facility] Monocytes Relative 10.8 % LAB HEMETOLOGY METHOD 12/01/2024 12:55 PM [facility] Eosinophils Relative 2.4 % LAB HEMETOLOGY METHOD 12/01/2024 12:55 PM [facility] Basophils Relative 0.5 % LAB HEMETOLOGY METHOD 12/01/2024 12:55 PM [facility] Immature Granulocytes Relative 0.3 % LAB HEMETOLOGY METHOD 12/01/2024 12:55 PM [facility] Neutrophils Absolute 1.74 1.50 - 7.00 K/mcL LAB HEMETOLOGY METHOD 12/01/2024 12:55 PM [facility] Lymphocytes Absolute 1.52 1.00 - 5.00 K/mcL LAB HEMETOLOGY METHOD 12/01/2024 12:55 PM EST [facility] Monocytes Absolute 0.41 0.20 - 1.00 K/mcL LAB HEMETOLOGY METHOD 12/01/2024 12:55 PM EST [facility] Eosinophils Absolute 0.09 0.00 - 0.50 K/[facility] LAB HEMETOLOGY METHOD 12/01/2024 12:55 PM EST [facility] Basophils Absolute 0.02 0.00 - 0.20 K/[facility] LAB HEMETOLOGY METHOD 12/01/2024 12:55 PM EST [facility] Immature Granulocytes Absolute 0.01 0.00 - 0.03 K/[facility] LAB HEMETOLOGY METHOD 12/01/2024 12:55 PM EST [facility] Blood Venous blood specimen / Unknown Venipuncture / Unknown 12/01/2024 12:05 PM EST 12/01/2024 12:45 PM EST Harry Wilson MD LAB BLOOD ORDERAB LES Performing Organization Address City/[facility]/ZIP Co de Phone Number [facility] [address] [place] [address], [place] [phone] * C-reactive protein (12/01/2024 12:05 PM EST) C-Reactive Protein <0.29 <=0.50 mg/dL LAB CHEMISTRY METHOD 12/01/2024 1:10 PM EST [facility] Blood Venous blood specimen / Unknown Venipuncture / Unknown 12/01/2024 12:05 PM EST 12/01/2024 12:45 PM EST Harry Wilson MD LAB BLOOD ORDERAB LES [facility] [address] [place] [address], [place] [phone] * Sedimentation rate (12/01/2024 12:05 PM EST) Pathologist [facility] Sed Rate 2 0 - 20 mm/hr LAB HEMETOLOGY METHOD 12/01/2024 1:04 PM EST [facility] Blood Venous blood specimen / Unknown Venipuncture / Unknown 12/01/2024 12:05 PM EST 12/01/2024 12:45 PM EST Harry Wilson MD LAB BLOOD ORDERAB LES [facility] [address] [place] [address], * Basic metabolic panel (12/01/2024 12:05 PM EST) [facility] Sodium 139 133 - 145 mmol/L LAB CHEMISTRY METHOD 12/01/2024 1:10 PM [facility] Potassium 4.1 3.5 - 5.5 mmol/L LAB CHEMISTRY METHOD 12/01/2024 1:10 PM [facility] Chloride 108 96 - 110 mmol/L LAB CHEMISTRY METHOD 12/01/2024 1:10 PM [facility] CO2 28 21 - 32 mmol/L LAB CHEMISTRY METHOD 12/01/2024 1:10 PM [facility] Anion Gap 3 3 - 11 LAB CHEMISTRY METHOD 12/01/2024 1:10 PM [facility] Glucose 97 70 - 100 mg/dL LAB CHEMISTRY METHOD 12/01/2024 1:10 PM [facility] BUN 12 5 - 25 mg/dL LAB CHEMISTRY METHOD 12/01/2024 1:10 PM [facility] Creatinine 0.75 0.50 - 1.10 mg/dL LAB CHEMISTRY METHOD 12/01/2024 1:10 PM [facility] eGFR 105 >=60 mL/min/1. 73m2 LAB CHEMISTRY METHOD 12/01/2024 1:10 PM [facility] Comment:Calculation based on the??Chronic Kidney Disease Epidemiology Collaboration (CKD-EPI) equation refit??without adjustment for race. BUN/Creatinine Ratio 16.0 LAB CHEMISTRY METHOD 12/01/2024 1:10 PM EST [facility] Calcium 8.7 8.5 - 10.5 mg/dL LAB CHEMISTRY METHOD 12/01/2024 1:10 PM EST [facility] Blood Venous blood specimen / Unknown Venipuncture / Unknown 12/01/2024 12:05 PM EST 12/01/2024 12:45 PM EST Harry Wilson MD LAB BLOOD ORDERAB LES [facility] [address] [place] [address], documented in this encounter Visit Diagnoses Diagnosis Periodic headache syndrome, not intractable- Primary documented in this encounter Administered Medications Inactive Administered Medications - up to 3 most recent administrations Medication Order MAR Action Action Date Dose Rate Site butalbital-acetaminophen -caffeine (FIORICET, ESGIC) 50-325-40 mg per tablet 2 tablet 2 tablet, oral, Once, On 12/01/24 at 1344, For 1 dose Given 12/01/2024 2:27 PM EST 2 tablets ketorolac (TORADOL) injection 15 mg 15 mg, intramuscular, Once, On 12/01/24 at 1358, For 1 dose Given 12/01/2024 2:27 PM EST 15 mg Left Deltoid LORazepam (ATIVAN) injection 1 mg 1 mg, intravenous, Once, On 12/01/24 at 1150, For 1 dose, Prior to IV use, lorazepam injection should be DILUTED with an equal volume of compatible solution; Rate of administration should NOT exceed 2 mg/min. Given 12/01/2024 12:07 PM EST 1 mg ondansetron (PF) (ZOFRAN) injection 4 mg 4 mg, intravenous, Once, On 12/01/24 at 1147, For 1 dose Given 12/01/2024 12:07 PM EST 4 mg sodium chloride 0.9 % bolus 1,000 mL 1,000 mL, intravenous, at 2,000 mL/hr, Administer over 30 Minutes, Once, On 12/01/24 at 1147, For 1 dose New Bag 12/01/2024 12:07 PM EST 1,000 mL 2000 mL/hr documented in this encounter Active and Recently Administered Medications Times are shown in EST. Scheduled Medication Order 11/29/2024 11/30/2024 12/01/2024 mmiadirxbw-evaoxgbaflcsl-xhdfyodz (FIORICET, ESGIC) 50-325-40 mg per tablet 2 tablet (COMPLETED) 2 tablet, oral, Once, On 12/01/24 at 1344, For 1 dose 1427 (Given - Provid er: Brenda Easton RN) ketorolac (TORADOL) injection 15 mg (COMPLETED) 15 mg, intramuscular, Once, On 12/01/24 at 1358, For 1 dose 1427 (Given - Provid er: Brenda Easton RN) LORazepam (ATIVAN) injection 1 mg (COMPLETED) 1 mg, intravenous, Once, On 12/01/24 at 1150, For 1 dose, Prior to IV use, lorazepam injection should be DILUTED with an equal volume of compatible solution; Rate of administration should NOT exceed 2 mg/min. 1207 (Given - Provid er: Brenda Easton RN) ondansetron (PF) (ZOFRAN) injection 4 mg (COMPLETED) 4 mg, intravenous, Once, On 12/01/24 at 1147, For 1 dose 1207 (Given - Provid er: Brenda Easton RN) sodium chloride 0.9 % bolus 1,000 mL (COMPLETED) 1,000 mL, intravenous, at 2,000 mL/hr, Administer over 30 Minutes, Once, On 12/01/24 at 1147, For 1 dose 1207 (New Bag - Prov ider: Brenda Easton RN)1439 (Stopped - Provider: Brenda Easton RN) documented in this encounter Care Teams Regional Economist Relationship Specialty Start Date End Date Jerry Lugo PA [address] [place] [phone] PCP - General Physician Epic Analyst 12/01/24 documented as of this encounter
--- OUTSIDE RECORDS SUMMARY | 2024-12-10 18:34 | XMS_ITS | Clinical Summary ---
Author Organization [facility] Address [address] [place] [address] Phone Care Team Providers Care Blind Lacer Name Role Phone Jerry Lugo Primary Care Provider [phone]- [phone] Allergies No known active allergies Medications Medication Sig Dispensed Refills Start Date End Date Status butalbital-acetamino phen-caffeine (FIORICET, ESGIC) 50-325-40 mg per tablet Take 2 tablets by mouth every 8 (eight) hours for 5 days. 30 each 12/01/2024 12/06/2024 Encounters Date Type Department Care Team Description 12/01/2024 11:35 AM EST - 12/01/2024 2:47 PM EST Emergency [facility] Emergency [address] [place] [address] Harry Wilson MD Periodic headache syndrome, not intractable (Primary Dx) Discharge Disposition: Home or Self Care from Last 3 Months Social History Tobacco Use Types Packs/Day Years Used Date Smoking Tobacco: Never Assessed Sex and Gender Information Value Date Recorded Sex Assigned at Not on file Gender Identity Not on file Sexual Orientation Not on file Job Start Date Occupation Industry Not on file Not on file Not on file Obstetrics History Last Filed Vital Signs Vital Sign Reading [...] Mass Index 23.78 12/01/2024 11:40 AM EST Plan of Treatment Health Maintenance Due Date Last Done Comments Cervical Cancer Screening: Pap Smear 2007 COVID-19 Vaccine ( season) 2024 08/26/2021, 02/13/2021, 01/09/2021 Influenza Vaccine (#1) 2024 , 10/19/2020, 09/02/2019, Additional history exists Depression Screening 12/01/2024 HIV Screening 12/01/2024 Hepatitis C Screening 12/01/2024 Social Influencers of Health Screening 12/01/2024 DTaP,Tdap,and Td Vaccines (9 - Td or Tdap) 02/16/2029 02/16/2019, 03/25/2017, 01/15/1999, Additional history exists HIB Vaccines Completed 09/06/1988 IPV Vaccines Completed 07/11/1991, 01/12, 1986, Additional history exists MMR Vaccines Completed 12/17/1998, 12/11/1987 Hepatitis B Vaccines Completed 07/01/1999, 01/15/1999, 12/17/1998 HPV Vaccines Aged Out No longer eligi ble based on patient's age to complete this topic Hepatitis A Vaccines Aged Out No long er eligible based on patient's age to complete this topic Meningococcal ACWY Vaccine Aged Out N o longer eligible based on patient's age to complete this topic Pneumococcal Vaccine: Pediatrics (0 to 5 Years) and At-Risk Patients (6 to 64 Years) Aged Out No longer eligible based on patient's age to complete this topic RSV Immunization Patients Under 20 months Aged Out No longer eligible based on patient's age to complete this topic Varicella Vaccines Aged Out No longer eligible based on patient's age to complete this topic Procedures Procedure Name Priority Date/Time Associated Diagnosis Comments CT HEAD WO CONTRAST STAT 12/01/2024 1 :32 PM EST POC , URINE DIAGNOSTIC STAT 12/01/2024 1:06 PM EST CBC WITH AUTO DIFFERENTIAL STAT 12/01/2024 12:05 PM EST C-REACTIVE PROTEIN STAT 12/01/2024 12 :05 PM EST SEDIMENTATION RATE STAT 12/01/2024 12 :05 PM EST BASIC METABOLIC PANEL STAT 12/01/2024 12:05 PM EST CBC AND DIFFERENTIAL STAT 12/01/2024 12:05 PM EST from Last 3 Months Results * CT Head wo Contrast (12/01/2024 [...] Signed Date: 12/01/2024 13:42 ET Workstation ID: [id number] Transcribed By: Self Edit Transcribed Date: 12/01/2024 [...] Signed Date: 12/01/2024 13:42 ET Workstation ID: [id number] Transcribed By: Self Edit Transcribed Date: 12/01/2024 13:40 ET Harry Wilson MD IMG CT PROCEDURES * POC , urine manually resulted (12/01/2024 1:06 PM EST) [facility] HCG, Ur POC Negative Negative POC hCG Int QC Pass? Yes Yes Urine Urine specimen obtained by clean catch procedure / Unknown 12/01/2024 1:06 PM EST Harry Wilson MD POINT OF CARE LUCAS T ENTER/EDIT ORDERABLES * (ABNORMAL) CBC auto differential (12/01/2024 12:05 PM EST) Pathologist [facility] WBC 3.8(L) 4.8 - 10.8 K/mcL LAB HEMETOLOGY METHOD 12/01/2024 12:55 PM EST [facility] RBC 3.70(L) 3.80 - 4.80 M/mcL LAB HEMETOLOGY METHOD 12/01/2024 12:55 PM EST [facility] Hemoglobin 10.7(L) 11.5 - 16.0 g/dL LAB HEMETOLOGY METHOD 12/01/2024 12:55 PM EST [facility] Hematocrit 32.7(L) 35.0 - 47.0 % LAB HEMETOLOGY METHOD 12/01/2024 12:55 PM [facility] MCV 89.6 79.0 - 98.0 FL LAB HEMETOLOGY METHOD 12/01/2024 12:55 PM [facility] MCH 29.3 27.0 - 32.0 pcg LAB HEMETOLOGY METHOD 12/01/2024 12:55 PM [facility] MCHC 32.7 32.0 - 37.0 g/dL LAB HEMETOLOGY METHOD 12/01/2024 12:55 PM [facility] RDW 13.9 11.0 - 15.0 % LAB HEMETOLOGY METHOD 12/01/2024 12:55 PM [facility] Platelets 197 130 - 400 K/mcL LAB HEMETOLOGY METHOD 12/01/2024 12:55 PM [facility] MPV 9.6 7.0 - 11.0 FL LAB HEMETOLOGY METHOD 12/01/2024 12:55 PM [facility] NRBC 0.0 <1.0 % LAB HEMETOLOGY METHOD 12/01/2024 12:55 PM [facility] NRBC Absolute 0.00 <0.10 K/mcL LAB HEMETOLOGY METHOD 12/01/2024 12:55 PM [facility] Neutrophils Relative 45.9 % LAB HEMETOLOGY METHOD 12/01/2024 12:55 PM [facility] Lymphocytes Relative 40.1 % LAB HEMETOLOGY METHOD 12/01/2024 12:55 PM [facility] Monocytes Relative 10.8 % LAB HEMETOLOGY METHOD 12/01/2024 12:55 PM [facility] Eosinophils Relative 2.4 % LAB HEMETOLOGY METHOD 12/01/2024 12:55 PM [facility] Basophils Relative 0.5 % LAB HEMETOLOGY METHOD 12/01/2024 12:55 PM EST [facility] Immature Granulocytes Relative 0.3 % LAB HEMETOLOGY METHOD 12/01/2024 12:55 PM [facility] Neutrophils Absolute 1.74 1.50 - 7.00 K/mcL LAB HEMETOLOGY METHOD 12/01/2024 12:55 PM EST [facility] Lymphocytes Absolute 1.52 1.00 - 5.00 K/mcL LAB HEMETOLOGY METHOD 12/01/2024 12:55 PM [facility] Monocytes Absolute 0.41 0.20 - 1.00 K/mcL LAB HEMETOLOGY METHOD 12/01/2024 12:55 PM [facility] Eosinophils Absolute 0.09 0.00 - 0.50 K/mcL LAB HEMETOLOGY METHOD 12/01/2024 12:55 PM EST [facility] Basophils Absolute 0.02 0.00 - 0.20 K/mcL LAB HEMETOLOGY METHOD 12/01/2024 12:55 PM [facility] Immature Granulocytes Absolute 0.01 0.00 - 0.03 K/mcL LAB HEMETOLOGY METHOD 12/01/2024 12:55 PM [facility] Blood Venous blood specimen / Unknown Venipuncture / Unknown 12/01/2024 12:05 PM EST 12/01/2024 12:45 PM EST Harry Wilson MD LAB BLOOD ORDERAB LES [facility] [address] [place] [address], * Sedimentation rate (12/01/2024 12:05 PM EST) Sed Rate 2 0 - 20 mm/hr LAB HEMETOLOGY METHOD 12/01/2024 1:04 PM EST [facility] Blood Venous blood specimen / Unknown Venipuncture / Unknown 12/01/2024 12:05 PM EST 12/01/2024 12:45 PM EST Harry Wilson MD LAB BLOOD ORDERAB LES Performing Organization Address City/[facility]/ZIP Co de Phone Number [facility] [address] [place] [address], * C-reactive protein (12/01/2024 12:05 PM EST) C-Reactive Protein <0.29 <=0.50 mg/dL LAB CHEMISTRY METHOD 12/01/2024 1:10 PM EST [facility] Blood Venous blood specimen / Unknown Venipuncture / Unknown 12/01/2024 12:05 PM EST 12/01/2024 12:45 PM EST Harry Wilson MD LAB BLOOD ORDERAB LES Performing Organization Address City/[facility]/ZIP Co de Phone Number [facility] [address] [place] [address], * Basic metabolic panel (12/01/2024 12:05 PM EST) Sodium 139 133 - 145 mmol/L LAB CHEMISTRY METHOD 12/01/2024 1:10 PM EST [facility] Potassium 4.1 3.5 - 5.5 mmol/L LAB CHEMISTRY METHOD 12/01/2024 1:10 PM [facility] Chloride 108 96 - 110 mmol/L LAB CHEMISTRY METHOD 12/01/2024 1:10 PM EST [facility] CO2 28 21 - 32 mmol/L LAB CHEMISTRY METHOD 12/01/2024 1:10 PM [facility] Anion Gap 3 3 - 11 LAB CHEMISTRY METHOD 12/01/2024 1:10 PM EST [facility] Glucose 97 70 - 100 mg/dL LAB CHEMISTRY METHOD 12/01/2024 1:10 PM EST [facility] BUN 12 5 - 25 mg/dL LAB CHEMISTRY METHOD 12/01/2024 1:10 PM [facility] Creatinine 0.75 0.50 - 1.10 mg/dL LAB CHEMISTRY METHOD 12/01/2024 1:10 PM [facility] eGFR 105 >=60 mL/min/1. 73m2 LAB CHEMISTRY METHOD 12/01/2024 1:10 PM EST [facility] Comment:Calculation based on the??Chronic Kidney Disease Epidemiology Collaboration (CKD-EPI) equation refit??without adjustment for race. BUN/Creatinine Ratio 16.0 LAB CHEMISTRY METHOD 12/01/2024 1:10 PM [facility] Calcium 8.7 8.5 - 10.5 mg/dL LAB CHEMISTRY METHOD 12/01/2024 1:10 PM [facility] Blood Venous blood specimen / Unknown Venipuncture / Unknown 12/01/2024 12:05 PM EST 12/01/2024 12:45 PM EST Harry Wilson MD LAB BLOOD ORDERAB LES [facility] [address] [place] [address], from Last 3 Months Care Teams Blind Lacer Relationship Specialty Start Date End Date Jerry Lugo PA [address] [place] [phone] PCP - General Physician Sod Cutter 12/01/24
--- OUTSIDE RECORDS SUMMARY | 2024-12-10 18:34 | XMS_ITS | Clinical Summary ---
Author Organization [facility] Address [address] [place] [address] Care Team Providers Care Personnel Recruiter Name Role Phone Unavailable Primary Care Provider Unavailabl e Allergies No known active allergies Immunizations Name Administration Dates Next Due Covid-19 (Pfizer) Dilution Required 02/13/2021,0 01/09/2021 Social History Tobacco Use Types Packs/Day Years Used Date Smoking Tobacco: Never Assessed Sex and Gender Information Value Date Recorded Sex Assigned at Not on file Gender Identity Not on file Sexual Orientation Not on file Plan of Treatment Health Maintenance Due Date Last Done Comments Hepatitis B Vaccines (1 of 3 - 3-dose series) 1986 Hepatitis C Screening 1986 Depression Screening 1998 DTap / Tdap / Td (6 - Tdap) 01/16/199902/1999, 07/11/1991, 01/27/1988, Additional history exists Preventative Health Evaluation 2004 Cervical Cancer Screening (Pap Smear) 2007 COVID-19 Vaccine ( season) 2024 02/13/2021, 01/09/2021 Influenza Vaccine (#1) 2024 Pneumococcal Vaccine Aged Out No long er eligible based on patient's age to complete this topic RSV Ped < 20 months Aged Out No longe r eligible based on patient's age to complete this topic [place] [id number]
--- OUTSIDE RECORDS SUMMARY | 2024-12-10 18:34 | XMS_ITS | Encounter Summary ---
Author Organization [facility] Address [address] [place] [phone] Phone Care Team Providers Care Wellness Program Manager Name Role Phone Unavailable Primary Care Provider Unavailabl e Encounter Details Date Type Department Care Team (Late st Contact Info) Description 03/21/2015 Documentation [facility] [place] [address] Family Medicine, [place] [address] Social History Tobacco Use Types [...]
== END 2024-12-10 14:43 | disposition home or self-care (01) ==
PROVIDERS: PCP Physician Assistant; Visit Provider Physician Assistant
DX: F90.0 Attention-deficit hyperactivity disorder, predominantly inattentive type (principal); Z13.1 Encounter for screening for diabetes mellitus; G43.909 Migraine, unspecified, not intractable, without status migrainosus

== ENCOUNTER → 2024-12-10 14:03 | Outpatient (BNVA) | payer OTHER, SELFPAY | PROVIDERS: PCP Physician Assistant; Visit Provider Physician Assistant ==

== ENCOUNTER 2025-09-12 07:27 | Outpatient (REF) | payer OTHER, SELFPAY ==
--- OUTSIDE RECORDS SUMMARY | 2025-09-12 07:29 | XMS_ITS | Encounter Summary ---
Author Organization [facility] Address [address] [place] [phone] Phone Care Team Providers Care Time Checker Name Role Phone Unavailable Primary Care Provider Unavailabl e Encounter Details Date Type Department Care Team (Late st Contact Info) Description 03/21/2015 Documentation [facility] Family Medicine [facility] [place] [address] Family Medicine, Physician [facility] [place] [address] Social History Tobacco Use Types [...]
--- OUTSIDE RECORDS SUMMARY | 2025-09-12 07:29 | XMS_ITS ---
Author Name [facility] Organization Unknown History of Medication Use Medication Directions Dispensed Refills Start Date End Date Stat us WegovyTake (subcutaneous)[id number] InjectorNo frequency recordedsubcutaneousNo set duration recordedNo set duration amount recordedactive0.5mg/0.5 mL 01/23/2024 a ctive dextroamphetamine-am phetami neTake (oral)[id number], Extended Release 24 hrNo frequency recordedoralNo set duration recordedNo set duration amount luxqfeeyjoexxs87qd 01/02/2024 active escitalopram oxalate Take (oral)[id number] frequency recordedoralNo set duration recordedNo set duration amount okvqiebjcapfoq1yh 01/02/2024 active Adderall XRTake (oral)[id number], Extended Release 24 hrNo frequency recordedoralNo set duration recordedNo set duration amount iasnmzrpnymemf61bc 07/06/2023 active Lidocaine ViscousTak e 15 ml (mucous membrane) every 3 hours PRN for 5 days (swish and spit)[id number] 3 hoursmucous vicuxryc0lzayetaxzdwuw6% 03/28/2023 chuck pended Problems Problem Status Onset Date Problem Type Date of Resoluti on Source Anxiety disorder, unspecified active ProblemAct [facility] Attention-deficit hyperactivity disorder, unspecified type active ProblemAct [facility] Acute upper respiratory infection, unspecified active 2024-02-14 ProblemAct [facility] YSONE Care Team Organization Name Specialty Phone Email Start Date End Da te [facility] Not Found Primary Care 02/14/2024 [facility] Not Found Primary Care 02/14/2024 08/06/2025
--- OUTSIDE RECORDS SUMMARY | 2025-09-12 07:29 | XMS_ITS | Clinical Summary ---
Author Organization [facility] Address [address] [place] [phone] Phone Care Team Providers Care Dental Biller Name Role Phone Unavailable Primary Care Provider Unavailabl e Immunizations Immunization Administration Dates Next Due DTP 07/11/1991, 8,03/12/1987,1986,1986 Hep B, ped/adol 07/01/1999,01/15/1999,12/17/1998 Hib (HbOC) 09/06/1988 MMR 12/17/1998,12/11/1987 OPV 07/11/1991, 8,1986,1985 Td (adult) (Tenivac), 5 Lf t etanus toxoid, PF, adsorbed [...] of 2 - 13+ 2-dose series) 1999 HPV Vaccines (1 - 3-dose SCDM series) 2013 Influenza Vaccines (#1) 2025 COVID-19 Vaccine ( - 2024- season) 2025 HIB Vaccines Completed 09/06/1988 IPV Vaccines Completed 07/11/1991, 01/12, 1986, Additional history exists MMR Vaccines Completed 12/17/1998, 12/11/1987 Hepatitis B Vaccines Completed 07/01/1999, 01/15/1999, 12/17/1998 Hepatitis A Vaccines Aged Out No long [...]
--- OUTSIDE RECORDS SUMMARY | 2025-09-12 07:29 | XMS_ITS | Clinical Summary ---
Author Organization [facility] Address [address] [place] [phone] Phone Care Team Providers Care Floor Nurse Name Role Phone Jerry Lugo Primary Care Provider +1- [phone] Allergies No known active allergies Social History Tobacco Use Types Packs/Day Years Used Date Smoking Tobacco: Never Assessed Comments Unknown Sex and Gender Information Value Date Recorded Sex Assigned at Not on file Legal Sex Female 4:25 AM EST Gender Identity Not on file Sexual Orientation Not on file Obstetrics History Last Filed Vital Signs Vital Sign Reading Time Taken Comments Blood Pressure 138/94 12/01/2024 2:34 PM EST Pulse 75 12/01/2024 2:34 PM EST Temperature 36.8 C (98.2 F) 12/01/2024 11:40 AM EST Respiratory Rate 18 12/01/2024 2:34 PM EST Oxygen Saturation 100% 12/01/2024 2:34 PM EST Inhaled Oxygen Concentration - - Weight 59 kg (130 lb) 12/01/2024 11:40 AM EST Height 157.5 cm (5' 2 ) 12/01/2024 11:40 AM EST Body Mass Index 23.78 12/01/2024 11:40 AM EST Plan of Treatment Health Maintenance Due Date Last Done Comments Cervical Cancer Screening: Pap Smear 2007 HPV Vaccines (1 - 3-dose SCDM series) 2013 Depression Screening 11/14/2024 HIV Screening 12/01/2024 Hepatitis C Screening 12/01/2024 Social Influencers of Health Screening 12/01/2024 COVID-19 Vaccine ( season) 2025 08/26/2021, 02/13/2021, 01/09/2021 Influenza Vaccine (#1) 2025 , 10/19/2020, 09/02/2019, Additional history exists DTaP,Tdap,and Td Vaccines (9 - Td or Tdap) 02/16/2029 02/16/2019, 03/25/2017, 01/15/1999, Additional history exists RSV Immunization Adult Patients (1 - 1-dose 75+ series) 2061 HIB Vaccines Completed 09/06/1988 IPV Vaccines Completed 07/11/1991, 01/12, 1986, Additional history exists MMR Vaccines Completed 12/17/1998, 12/11/1987 Hepatitis B Vaccines Completed 07/01/1999, 01/15/1999, 12/17/1998 Hepatitis A Vaccines Aged Out No long er eligible based on patient's age to complete this topic Meningococcal ACWY Vaccine Aged Out N o longer eligible based on patient's age to complete this topic Meningococcal B Vaccine Aged Out No l onger eligible based on patient's age to complete this topic Pneumococcal Vaccine: Pediatrics (0 to 5 Years) and At-Risk Patients (6 to 49 Years) Aged Out No longer eligible based on patient's age to complete this topic RSV Immunization Patients Under 20 months Aged Out No longer eligible based on patient's age to complete this topic Varicella Vaccines Aged Out No longer eligible based on patient's age to complete this topic Insurance [facility] Care Teams Floor Nurse Relationship Specialty Start Date End Date Jerry Lugo PA [address] [place] [phone] PCP - General Physician Mainframe Systems Administrator 12/01/24
--- OUTSIDE RECORDS SUMMARY | 2025-09-12 07:29 | XMS_ITS | Encounter Summary ---
Author Organization [facility] Address [address] [place] [phone] Phone Care Team Providers Care Foot Worker Name Role Phone Unavailable Primary Care Provider Unavailabl e Encounter Details Date Type Department Care Team (Late st Contact Info) Description 03/21/2015 Documentation [facility] [place] Medicine formerly [facility] [place] [address] Family Medicine, Physician [facility] [place] [address] Social History Tobacco Use Types [...]
--- OUTSIDE RECORDS SUMMARY | 2025-09-12 07:29 | XMS_ITS | Clinical Summary ---
Author Organization [facility] Address [address] [place] [address] Care Team Providers Care Web Site Manager Name Role Phone Unavailable Primary Care [...] (Pap Smear) 2007 COVID-19 Vaccine ( season) 2025 02/13/2021, 01/09/2021 Influenza Vaccine (#1) 2025 Pneumococcal Vaccine Aged Out No long er eligible based on patient's age to complete this topic RSV Ped < 20 months Aged Out No longe r eligible based on patient's age to complete this topic [place] [id number]
== END 2025-09-12 07:28 | disposition home or self-care (01) ==
LOC: HO.MAMMO 07:27
PROVIDERS: PCP Physician Assistant; Visit Provider Physician Assistant
DX: Z12.31 Encounter for screening mammogram for malignant neoplasm of breast (principal)
CPT/HCPCS: 77063; 77067

== ENCOUNTER → 2025-09-12 07:30 | Outpatient (BNV) | payer OTHER, SELFPAY | PROVIDERS: PCP Physician Assistant; Visit Provider Radiology Body Imaging | DX: Z12.31 Encounter for screening mammogram for malignant neoplasm of breast (principal) | CPT/HCPCS: 77063; 77067 ==

== ENCOUNTER 2025-10-21 08:38 | Outpatient (AMB) | payer OTHER, SELFPAY ==
--- NOTE | 2025-10-21 08:43 | MHC.PC.OV ---
Vital Signs 10/21/25 08:45 Height 5 ft 2 in Weight 133 lb 6 oz BMI 24.4 BP 120/72 Blood Pressure Location Lt brachial Position Sitting Pulse 80 Pulse Source Pulse Oximeter Temp 97.3 F Temp Source Temporal Artery Scan Pulse Oximetry (%) 98 Oxygen Delivery Method Room Air Intake Visit Reasons: f/u on ADHD Intake Note: Patient is here to follow up on ADHD. Recruiter Specialist Required: No Regenerator Operator: Not Required per policy Accompanied by: Self / Same As Patient Allergies No Known Allergies Allergy (Verified 10/21/25 09:19) Medication List - Last Reconciled 10/21/25 by Jerry Lugo PA-C dextroamphetamine-amphetamine 10 mg ER 10 mg PO DAILY 30 days escitalopram oxalate 5 mg PO DAILY sumatriptan succinate take 1 tab at onset of headache; if no relief may repeat 1 tab after at least 2 hrs; max = 4 tabs/24 hr PO 30 days tirzepatide (weight loss) (Zepbound) 2.5 mg (0.5 mL) subcut QWEEK 4 weeks Tobacco use date assessed: 10/21/25 Dental Screening Dental Screen Date: 12/10/24 HPI f/u on ADHD HPI Details Patient is a 39-year-old female here today for follow-up visit ?Patient has a past medical history significant for ADHD , generalized anxiety disorder. Concern--> For the past four to five years, she has experienced recurrent episodes of severe sinus infections, occurring about three times a year, consistently on her left side. The symptoms are debilitating, with significant pain over her left eye, and she recently required a visit to urgent care for antibiotics. She feels these episodes are associated with seasonal changes. She believes she might have nasal polyps, a concern raised by her mother. Migraines: Patient reports her migraines has been much better this frequent with the use of p.r.n. sumatriptan. She reports the active in his of the medication has been remarkable. .. ADHD:? Patient continues on low-dose Adderall with good effect on her her attention of focus on job tasks. She reports taking Adderall 3 to 4 times a week during work days. 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 Generalized anxiety disorder:? Continues on SSRI therapy and doing well. Her mental Health/anxiety has been better even since losing weight :Obesity: We have transitioned her to his lb from [employer] and she has been able to maintain her weight. Today's BMI at 24. [facility] Surgical History No pertinent past surgical history Family History Father No problems noted. 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 1. Little interest or pleasure in doing things: not at all 2. Feeling down, depressed, or hopeless: not at all 3. Trouble falling or staying asleep, or sleeping too much: not at all 4. Feeling tired or having little energy: not at all 5. Poor appetite or overeating: not at all 6. Feeling bad about yourself - or that you are a failure or have let yourself or your family down: not at all 7. Trouble concentrating on things, such as reading the newspaper or watching television: not at all 8. Moving or speaking so slowly that other people could have noticed. Or the opposite - being so fidgety or restless that you have been moving around a lot more than usual: not at all 9. Thoughts that you would be better off or of hurting yourself in some way: not at all Total score: 0 Depression Screening Interpretation: Negative Depression Screening Done: Yes 27766 - PHQ-9 Billing: Yes Source: Developed by Drs. Tj Bustillos, Alka Ybarra, Chandan Lorenz and colleagues, with an educational ann-marie from [employer]. Thrive Questionnaire Date Thrive assessed: 12/10/24 I am a: Patient What is your living situation today?: I have a steady place to live Within the past 12 months, did the food you bought not last and you didn't have the money to get more?: Never true Within the past 12 months, did you worry whether your food would run out before you got money to buy more?: Never true Do you have trouble paying for medicines?: No Do you have trouble getting transportation to medical appointments?: No Do you have trouble paying your heating and electricity bill?: No Do you have trouble taking care of your child, family member or friend?: No Do you have trouble with day-to-day activities such as bathing, preparing meals, shopping, managing finances, etc.?: No Are you currently unemployed and looking for a job?: No Are you interested in more education?: No Please select the resources that you would like help with: None Currently or been in a relationship where the following occur: No concerns reported THRIVE Score: 0 AUDIT C Alcohol Use Questionnaire (AUDIT-C) 1. How often do you have a drink containing alcohol?: 2-4 times a month Total Score: 2 CHIARA-7 AMB Questionnaire CHIARA-7 Date CHIARA - 7 assessed: 10/21/25 (pt on RX for anxiety ) Feeling nervous, anxious, or on edge: 0 = Not at all Not being able to stop or control worryin = Not at all Worrying too much about different things: 0 = Not at all Trouble relaxin = Not at all Being so restless that it is hard to sit still: 0 = Not at all Becoming easily annoyed or irritable: 0 = Not at all Feeling afraid as if something awful might happen: 0 = Not at all Total CHIARA-7 score (0-4 normal; 5-9 mild; 10-14 moderate; 15-21 severe): 0 Source: Developed by Drs. Tj Bustillos, Alka Ybarra, Chandan Lorenz and colleagues, with an educational ann-marie from [employer]. Review of Systems Const Denies headache(s) Eyes Denies loss of vision ENT Denies vertigo, Denies dizziness, Denies headache(s), Reports sinus pain and Denies sore throat Card Denies chest pain, Denies leg edema and Denies lightheadedness Resp Denies cough, Denies hemoptysis and Denies wheezing GI Denies abdominal pain, Denies melena, Denies constipation, Denies diarrhea and Denies vomiting Denies urinary frequency, Denies dysuria and Denies urinary urgency Musc Denies arthralgias, Denies joint swelling, Denies numbness and Denies tingling Neuro Denies Abnormal speech present, Denies behavioral changes, Denies vertigo, Denies dizziness, Denies headache(s), Denies loss of vision, Denies memory loss, Denies numbness and Denies tingling Psych Denies anxiety, Denies behavioral changes, Denies depression, Denies memory loss and Denies panic attacks Juan Manuel/Lymph Denies easy bleeding and Denies easy bruising Aller/Immun Denies wheezing Physical exam (Primary Care) Vital Signs: Last Vital Signs Temp 97.3 F 10/21/25 08:45 Pulse 80 10/21/25 08:45 BP 120/72 10/21/25 08:45 Pulse Ox 98 10/21/25 08:45 Oxygen Delivery Method Room Air 10/21/25 08:45 BMI result Body Mass Index 24.4 Tobacco/Smoking Status: Tobacco use Status Tobacco use date assessed 10/21/25 10/21/25 08:57 Patient Tobacco Use Status Never used Tobacco 10/21/25 08:57 e-Cigarette/Vaping Use Never Used 10/21/25 08:57 PHQ-9: PHQ-9 Score PHQ-9: Total score 0 10/21/25 09:21 Depression Screening Interpretation: Negative Thrive Assessment: Date of Thrive Assessment Date Thrive assessed 12/10/24 10/21/25 08:57 Currently or been in a relationship where the following occur: No concerns reported Const General: healthy appearing, no acute distress, alert and awake Nutritional Appearance: well nourished Orientation/consciousness: oriented to person, oriented to place and oriented to time HENMT Ears: TM's normal bilaterally General nose exam: Normal nasal mucous membranes and turbinates present Eyes Conjunctivae: conjunctivae normal Sclerae: sclerae normal Pupils: Equal, round and reactive pupils present Neck Neck: Yes no lymphadenopathy and Yes no JVD Thyroid: Thyroid normal Carotids: no bruits Resp Effort & Inspection: normal respiratory effort and not tachypneic Auscultation: no crackles, no rales, no rhonchi and no wheezes Cardio Rate: regular rate Rhythm: regular rhythm Heart sounds: no murmurs and normal S1 and S2 GI Palpation (GI): Soft to palpation, nontender, no hepatomegaly and no splenomegaly Auscultation: normal bowel sounds Skin General skin exam: no rashes or lesions noted and dry skin Neuro General: oriented to person, oriented to place and oriented to time Cranial nerves: Yes Equal, round and reactive pupils present Speech: No Abnormal speech present Gait exam (Neuro): Normal gait present Motor exam (neuro): no tremor noted Extrem Right upper extremity: full ROM Left upper extremity: full ROM Right lower extremity: full ROM; no edema Left lower extremity: full ROM; no edema Psych Mental Status: mental status grossly normal Speech and movement: Normal speech and movement present Affect: normal affect Attitude: cooperative Thought process: Normal thought process present Office Procedures Flu Questionnaire Does the patient have a severe egg allergy?: No Does the patient have severe life threatening allergies?: No Does the patient have a fever or illness today?: No Has the patient ever had Guillain-[place] Syndrome?: No Has the patient ever had any past reaction to a flu shot?: No Immunizations Fluarix [id number] (PF) 45 mcg (15 mcg x 3)/0.5 mL IM syringe Performing Provider: Jerry Lugo PA-C [facility] Administered by: Sharmaine Sneed CMA on 10/21/25 09:42 Dose Route Admin Location Dispensed Lot Number Expiration Date NDC Underwater [employer] 0.5 mL IM Left Deltoid 0.5 mL [id number] 05/13/26 [id number] [employer] VIS Given Date VIS Provided VIS Publication Date 10/21/25 Single Vaccine 24 Eligibility Eligibility Date Funding Source Not [facility] Eligible 10/21/25 Private Coding Level of Care Code Est Pt Level 4 (01066) Diagnoses Attention deficit hyperactivity disorder (ADHD), predominantly inattentive type F90.0 Attention deficit-hyperactivity disorder type: predominantly inattentive Migraine without status migrainosus, not intractable, unspecified migraine type G43.909 Migraine type: unspecified Status migrainosus presence: without status migrainosus Intractability: not intractable Chronic frontal sinusitis J32.1 Sinusitis location: frontal Class 1 obesity E66.811 Additional Codes PHQ-9 - 24208 - PHQ-9 Billing: Yes ([id number]) Assessment & Plan Assessment & Plan (1) ADHD: Code(s): F90.9 - Attention-deficit hyperactivity disorder, unspecified type Category: Medical Qualifiers: Attention deficit-hyperactivity disorder type: predominantly inattentive Qualified Code(s): F90.0 - Attention-deficit hyperactivity disorder, predominantly inattentive type Plan: Patient continues on Adderall 10 mg extended release with good effect. 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 She is only using Adderall on work days. She denies any side effects stimulant ADHD medication. (2) Migraines: Code(s): G43.909 - Migraine, unspecified, not intractable, without status migrainosus Category: Medical Qualifiers: Migraine type: unspecified Status migrainosus presence: without status migrainosus Intractability: not intractable Qualified Code(s): G43.909 - Migraine, unspecified, not intractable, without status migrainosus Plan: Patient reports sumatriptan works wonderfully for her migraines. She would like to continue on this dose of sumatriptan. (3) Chronic sinusitis: Code(s): J32.9 - Chronic sinusitis, unspecified Category: Medical Qualifiers: Sinusitis location: frontal Qualified Code(s): J32.1 - Chronic frontal sinusitis Plan: Regarding her recurrent left-sided sinusitis, an ENT referral will be placed. A sinus X-ray and a CT of the sinuses will be ordered, with the patient to proceed with the X-ray first, as it may be required by insurance prior to the CT scan. It was recommended she start a daily [id number] allergy medication, like Claritin or Zyrtec, at night to see if it helps prevent the sinus infections, particularly starting it a few weeks before the anticipated seasonal change. (4) Class 1 obesity: Code(s): E66.811 - Obesity, class 1 Category: Medical Plan: For weight management, the patient is satisfied with her current weight of 133 lbs and will continue Zepbound 2.5 mg but plans to decrease the frequency from weekly to every other week, and then potentially to once monthly, to maintain her weight. She has refills available for this medication. Orders: Orders Complete Blood Count no Diff Today Z13.1 - Encounter for screening for diabetes mellitus Influenza [id number] Immunization Today Z23 - Encounter for immunization Comprehensive [place]. Panel Fast Today Z13.1 - Encounter for screening for diabetes mellitus IRON PROFILE Today D50.9 - Iron deficiency anemia, unspecified, Z13.0 - Encounter for screening for diseases of the blood and blood-forming organs and certain disorders involving the immune mechanism XR sinus min 3V Today J32.1 - Chronic frontal sinusitis CT sinus wo IV con Today J32.1 - Chronic frontal sinusitis Referrals Ear/Nose/Throat Referral J32.1 - Chronic frontal sinusitis
[2025-10-21 08:45] VITALS: BP 120/72; PULSE 80; TEMP 36.3; O2SAT 98; BMI 24.4
== END 2025-10-21 09:47 | disposition home or self-care (01) ==
LOC: HO.HMCH 08:39
PROVIDERS: PCP Physician Assistant; Visit Provider Physician Assistant
DX: F90.0 Attention-deficit hyperactivity disorder, predominantly inattentive type (principal); G43.909 Migraine, unspecified, not intractable, without status migrainosus; E66.811 Obesity, class 1; Z68.24 Body mass index [BMI] 24.0-24.9, adult; J32.1 Chronic frontal sinusitis; Z23 Encounter for immunization

== ENCOUNTER → 2025-10-21 08:38 | Outpatient (BNVA) | payer OTHER, SELFPAY | PROVIDERS: Visit Provider Physician Assistant | DX: F41.1 Generalized anxiety disorder (principal); F90.9 Attention-deficit hyperactivity disorder, unspecified type; G43.909 Migraine, unspecified, not intractable, without status migrainosus; F90.0 Attention-deficit hyperactivity disorder, predominantly inattentive type; J32.1 Chronic frontal sinusitis; Z23 Encounter for immunization | CPT/HCPCS: 90471; 90656; 96127 ==